=== PATIENT | female | born 1985 ===

== ENCOUNTER 2020-07-29 13:28 | Emergency (ER) | payer OTHER, SELFPAY ==
[2020-07-29 13:44] VITALS: BP 115/71; PULSE 67; RESP 16; TEMP 36.2; O2SAT 98; BMI 35.8
--- NOTE | 2020-07-29 13:54 | ED_ITS ---
HPI - URI/Sore Throat General Chief Complaint: Upper Respiratory Symptoms <Amena Boo NP - Last Filed: 07/29/20 14:24> Stated Complaint: Cough <Amena Boo NP - Last Filed: 07/29/20 14:24> Time Seen by Provider: 07/29/20 13:53 <Amena Boo NP - Last Filed: 07/29/20 14:24> Source: patient <Amena Boo NP - Last Filed: 07/29/20 14:24> Mode of arrival: ambulatory <Amena Boo NP - Last Filed: 07/29/20 14:24> Limitations: no limitations <Amena Boo NP - Last Filed: 07/29/20 14:24> History of Present Illness HPI Narrative: cough, runny nose, diarrhea x3 days. No vomiting or abdominal pain. No fevers or chills. No shortness of breath or chest pain. <Amena Boo NP - Last Filed: 07/29/20 14:24> MD elicited complaint: cough and rhinorrhea <Amena Boo NP - Last Filed: 07/29/20 14:24> Onset (ago): day(s) <Amena Boo NP - Last Filed: 07/29/20 14:24> Consistency: constant <Amena Boo NP - Last Filed: 07/29/20 14:24> Severity: mild <Amena Boo NP - Last Filed: 07/29/20 14:24> Description of mucous: clear <Amena Boo NP - Last Filed: 07/29/20 14:24> Able to tolerate fluids by mouth: Yes <RAFA Peñaloza Last Filed: 07/29/20 14:24> Exacerbating factors: nothing <Amena Boo NP - Last Filed: 07/29/20 14:24> Relieving factors: nothing <Amena Boo NP - Last Filed: 07/29/20 14:24> Associated symptoms: rhinorrhea, cough and diarrhea <Amena Boo NP - Last Filed: 07/29/20 14:24> Treatments prior to arrival: none <Amena Boo NP - Last Filed: 07/29/20 14:24> Related Data Home Medications: Previous Rx's Medication Instructions Recorded tramadol 50 mg tablet 50 mg PO DAILY PRN 30 Days #30 tab 07/26/20 <Amena Boo NP - Last Filed: 07/29/20 14:24> Allergies/Adverse Reactions: Allergies Allergy/AdvReac Type Severity Reaction Status Date / Time No Known Allergies Allergy Unverified 06/13/20 18:37 <Amena Boo NP - Last Filed: 07/29/20 14:24> Review of Systems Constitutional: Constitutional: Reports no additional constitutional complaints, Denies body ache(s), Denies chills, Denies fever(s) and Denies weakness <Amena Boo NP - Last Filed: 07/29/20 14:24> Eyes: Eyes: Reports no additional eye complaints and Denies change in vision <Amena Boo NP - Last Filed: 07/29/20 14:24> ENT: Reports system reviewed and no additional complaints, except as documented, Denies dizziness, Denies otalgia, Reports nasal discharge, Denies neck pain and Denies sore throat <Amena Boo NP - Last Filed: 07/29/20 14:24> Cardiovascular: Cardiovascular: Reports no additional cardiovascular complaints, Denies chest pain, Denies leg edema and Denies dyspnea <Amena Boo NP - Last Filed: 07/29/20 14:24> Respiratory: Respiratory: Reports no additional respiratory complaints, Reports cough and Denies dyspnea <Amena Boo NP - Last Filed: 07/29/20 14:24> Gastrointestinal: Gastrointestinal: Reports no additional gastrointestinal complaints, Denies abdominal pain, Reports diarrhea, Denies nausea and Denies vomiting <Amena Boo NP - Last Filed: 07/29/20 14:24> Genitourinary: Genitourinary: Reports no additional female genitourinary complaints, Denies urinary incontinence, Denies urinary hesitancy and Denies urinary urgency <Amena Boo NP - Last Filed: 07/29/20 14:24> Musculoskeletal: Musculoskeletal: Reports no additional musculoskeletal complaints, Denies back pain, Denies arthralgias, Denies joint swelling, Denies neck pain, Denies numbness and Denies tingling <Amena Boo NP - Last Filed: 07/29/20 14:24> Integumentary/Breasts: Skin/Breast: Reports system reviewed and no additional complaints, except as docu and Denies rash <Amena Boo NP - Last Filed: 07/29/20 14:24> Neurologic: Reports system reviewed and no additional complaints, except as documented, Denies Abnormal speech present, Denies dizziness, Denies numbness, Denies tingling and Denies weakness <Amena Boo NP - Last Filed: 07/29/20 14:24> PMFSH Past Medical History Attestation statement: The following information was validated with the patient. <Amena Boo NP - Last Filed: 07/29/20 14:24> Source: obtained from family and nursing notes reviewed <Amena Boo NP - Last Filed: 07/29/20 14:24> Surgical History: Surgical History Previous section <Amena Boo NP - Last Filed: 07/29/20 14:24> Social History Social History: Social History Advance Directives: No Advance Directives Information Provided: No <Amena Boo NP - Last Filed: 07/29/20 14:24> Physical Exam Vital Signs: Vital Signs: Vital Signs Temp Pulse Resp BP Pulse Ox 07/29/20 13:44 97.2 F 67 16 115/71 98 Body Mass Index 35.8 <Amena Boo NP - Last Filed: 07/29/20 14:24> Vital Signs: Vital Signs Temp Pulse Resp BP Pulse Ox 07/29/20 13:44 97.2 F 67 16 115/71 98 Body Mass Index 35.8 <Rainer Soto MD - Last Filed: 08/09/20 01:34> Const: General: cooperative, healthy appearing, comfortable and no acute distress <Amena Boo NP - Last Filed: 07/29/20 14:24> Orientation/consciousness: patient oriented x3 <Amena Boo NP - Last Filed: 07/29/20 14:24> Limitations: no limitations <Amena Boo NP - Last Filed: 07/29/20 14:24> HENMT: Head: Yes normal to inspection <Amena Boo NP - Last Filed: 07/29/20 14:24> Ears: hearing grossly normal bilaterally <Amena Boo NP - Last Filed: 07/29/20 14:24> General nose exam: Normal external nose present <Amena Boo NP - Last Filed: 07/29/20 14:24> Face and sinus: Yes normal facial exam <Amena Boo NP - Last Filed: 07/29/20 14:24> Mouth: Normal oral and palatal mucosa present <Amena Boo NP - Last Filed: 07/29/20 14:24> Throat: Yes posterior oropharynx normal <Amena Boo NP - Last Filed: 07/29/20 14:24> Eyes: General: appearance normal, both eyes and all related structures <Amena Boo NP - Last Filed: 07/29/20 14:24> Pupils: Equal, round and reactive pupils present <Amena Boo NP - Last Filed: 07/29/20 14:24> Neck: Neck: Yes normal visual inspection <Amena Boo NP - Last Filed: 07/29/20 14:24> Chest: Chest palpation & inspection: normal inspection of the chest <Amena Boo NP - Last Filed: 07/29/20 14:24> Resp: Effort & Inspection: normal respiratory effort <Amena Boo NP - Last Filed: 07/29/20 14:24> Auscultation: clear to auscultation bilaterally <Amena Boo NP - Last Filed: 07/29/20 14:24> Cardio: Rate: regular rate <Amena Boo NP - Last Filed: 07/29/20 14:24> Rhythm: regular rhythm <Amena Boo NP - Last Filed: 07/29/20 14:24> Peripheral pulses: Peripheral pulses 2+ throughout <Amena Boo NP - Last Filed: 07/29/20 14:24> GI: Inspection: Yes normal to inspection <Amena Boo DOCUMENTATION IMPROVEMENT SPECIALIST - Last Filed: 07/29/20 14:24> Palpation (GI): Soft to palpation and nontender <Amena Boo NP - Last Filed: 07/29/20 14:24> Auscultation: normal bowel sounds <Amena Boo NP - Last Filed: 07/29/20 14:24> Back/Spine/Pelvis: Thoracic/Lumbar Spine: thoracic and lumbar spine normal to inspection <Amena Boo NP - Last Filed: 07/29/20 14:24> Skin: General skin exam: no rashes or lesions noted <Amena Boo NP - Last Filed: 07/29/20 14:24> Neuro: General: patient oriented x3, no focal motor deficits and normal sensation to monofilament <Amena Boo NP - Last Filed: 07/29/20 14:24> Cranial nerves: Yes Equal, round and reactive pupils present <Amena Boo NP - Last Filed: 07/29/20 14:24> Cognition (Neuro): normal cognition <Amena Boo NP - Last Filed: 07/29/20 14:24> Speech: No Abnormal speech present <Amena Boo NP - Last Filed: 07/29/20 14:24> Gait exam (Neuro): Normal gait present <Amena Boo NP - Last Filed: 07/29/20 14:24> Motor exam (neuro): 5/5 motor strength present throughout <Amena Boo NP - Last Filed: 07/29/20 14:24> Extrem: General: Yes normal to inspection <Amena Boo NP - Last Filed: 07/29/20 14:24> Course Course Course Narrative: Patient here with cough and runny nose and diarrhea for the last 3 days. Well appearing. Stable vital signs. No abdominal pain on exam. COVID testing sent. Reviewed worrisome signs and symptoms of when to return to the emergency department. Comfortable with discharge home. <Amena Boo NP - Last Filed: 07/29/20 14:24> I have reviewed the chart <Rainer Soto MD - Last Filed: 08/09/20 01:34> MDM - URI/Sore Throat Lab Data Labs: Lab Results 07/29/20 Range/Units 14:07 COVID-19 PCR NOT DETECTED (NOT DETECTED) <Amena Boo NP - Last Filed: 07/29/20 14:24> Lab Results 07/29/20 Range/Units 14:07 COVID-19 PCR NOT DETECTED (NOT DETECTED) <Rainer Soto MD - Last Filed: 08/09/20 01:34> Discharge Plan Discharge Clinical Impression: Viral infection <Amena Boo NP - Last Filed: 07/29/20 14:24> Patient Disposition: Home, Self-Care <Amena Boo NP - Last Filed: 07/29/20 14:24> Instructions: Viral Syndrome (ED) <Amena Boo NP - Last Filed: 07/29/20 14:24> Additional Instructions: We have tested you today for COVID 19. Test results take 1-2 days and we will call you with the results negative or positive. Take tylenol or motrin if able as needed for pain or fever. Stay well hydrated with fluids like water, gatorade and/or powerade. Wash hands at home. If living with others try to self isolate if possible. If unable wear a mask around others in your home and wash hands frequently. If COVID test is positive you will need to self isolate for a total of 14 days from when your symptoms started. You may return to work sooner if testing is negative and all symptoms resolved >72 hours. You should return to the emergency department for severe shortness of breath, chest pain or fever which does not respond to both tylenol and motrin at home. <Amena Boo NP - Last Filed: 07/29/20 14:24> Prescriptions: No Action tramadol 50 mg tablet 50 mg PO DAILY PRN (Reason: pain) 30 Days Qty: 30 RF: 0 <Amena Boo NP - Last Filed: 07/29/20 14:24> Referrals: Po,Tom Plasencia MD [Primary Care Provider] - 2 days <Amena Boo NP - Last Filed: 07/29/20 14:24> Stand Alone Forms: Work/School Release <Amena Boo NP - Last Filed: 07/29/20 14:24> Interventions: ED Discharge Assessment Last Done: 07/29/20 14:21 <Amena Boo NP - Last Filed: 07/29/20 14:24> Discharge Date/Time: 07/29/20 14:15 <Amena Boo NP - Last Filed: 07/29/20 14:24>
== END 2020-07-29 14:15 | disposition home or self-care (01) ==
LOC: HO.ED 14:08
PROVIDERS: Nurse Practitioner Family; Emergency Provider Emergency Medicine; PCP Internal Medicine
DX: B34.9 Viral infection, unspecified (principal); R05 Cough; J34.89 Other specified disorders of nose and nasal sinuses; Z79.899 Other long term (current) drug therapy
CPT/HCPCS: 99283; U0003

== ENCOUNTER 2020-08-27 08:57 | Outpatient (REF) | payer OTHER, SELFPAY ==
[2020-08-27 10:29] LABS: Baso%MD 0.5 %; Eos%MD 3.3 %; Hematocrit 42.9 % (37-47); Hemoglobin 13.5 g/dl (12.0-16.0); IG%MD 0.5 %; Lymph%MD 37.7 %; Mean Corpuscular HGB Conc 31.5 g/dl (31.0-35.0); Mean Corpuscular Hemoglobin 29.3 pg (27.0-33.0); Mean Corpuscular Volume 93.3 fL (80-98); Mean Platelet Volume 10.1 fL (9.4-12.3); Mono%MD 10.2 %; Neut%MD 47.8 %; Platelet Count 301 X10*3/uL (160-400); Red Cell Distribution Width 13.6 % (11.0-16.0); White Blood Count 6.1 X10*3/uL (4.8-10.8)
[2020-08-27 12:57] LABS: Band Neutrophils Percent 0 % (3-5); Eosinophils Absolute Manual 0.2 X10*3/UL (0.0-0.8); Eosinophils Percent Manual 4 % (0-4); Lymphocytes Absolute Manual 2.2 X10*3/uL (0.6-4.8); Lymphocytes Percent Manual 36 % (20-40); Monocytes Absolute Manual 0.7 X10*3/uL (0.0-1.2); Monocytes Percent Manual 12 % (2-11); Neutrophils Absolute Manual 2.9 X10*3/uL (2.2-7.9); Neutrophils Percent Manual 48 % (45-73); Platelet Estimate NORMAL (NORMAL); Platelet Morphology Comment NORMAL; RBC Morphology NORMAL
== END 2020-08-27 08:58 | disposition home or self-care (01) ==
LOC: HO.LAB 08:57
PROVIDERS: PCP Internal Medicine; Visit Provider Internal Medicine
DX: J45.909 Unspecified asthma, uncomplicated (principal)
CPT/HCPCS: 36415; 85007; 85027

== ENCOUNTER 2020-10-01 17:19 | Outpatient (REF) | payer OTHER, SELFPAY | END 2020-10-01 17:20 | disposition home or self-care (01) | LOC: HO.LNP 17:19 | PROVIDERS: Visit Provider Physician Assistant | DX: T81.30XA Disruption of wound, unspecified, initial encounter (principal) | CPT/HCPCS: 87071; 87147; 87205 ==

== ENCOUNTER 2020-10-10 08:04 | Outpatient (RCR) | payer OTHER, SELFPAY | END 2021-01-30 11:33 | disposition home or self-care (01) | LOC: HO.WCC 08:04 | PROVIDERS: Visit Provider Surgery | DX: T81.31XA Disruption of external operation (surgical) wound, not elsewhere classified, initial encounter (principal) | CPT/HCPCS: 11042; 99203; 99212 ==

== ENCOUNTER 2021-03-10 12:48 | Outpatient (REF) | payer OTHER, SELFPAY ==
[2021-03-10 13:51] LABS: MANUAL DIFF FLAG NO
[2021-03-10 14:05] LABS: Basophils Percent Auto 0.3 % (0-2); Eosinophils Absolute Auto 0.2 X10*3/uL (0.0-0.4); Eosinophils Percent Auto 3.7 % (0-4); Hematocrit 39.3 % (37-47); Imm Gran Abs Auto 0.02 X10*3/uL (0.00-0.03); Imm Gran Pct Auto 0.3 % (0.0-0.4); Lymphocytes Absolute Auto 2.3 X10*3/uL (1.2-4.9); Lymphocytes Percent Auto 36.2 % (20-40); Mean Corpuscular HGB Conc 33.1 g/dl (31.0-35.0); Mean Corpuscular Hemoglobin 29.8 pg (27.0-33.0); Mean Corpuscular Volume 90.1 fL (80-98); Mean Platelet Volume 9.9 fL (9.4-12.3); Monocytes Absolute Auto 0.5 X10*3/uL (0.1-1.2); Monocytes Percent Auto 7.5 % (2-11); Neutrophils Absolute Auto 3.4 X10*3/uL (2.0-8.3); Platelet Count 285 X10*3/uL (160-400); Red Blood Count 4.36 X10*6/uL (4.20-5.50); Red Cell Distribution Width 13.2 % (11.0-16.0); White Blood Count 6.4 X10*3/uL (4.8-10.8)
[2021-03-10 14:20] LABS: Glucose Urine UA NEG (NEG); Leukocyte Esterase Urine NEG (NEG); Nitrite Urine NEG (NEG); Specific Gravity - Urine 1.025 (1.005-1.025); Urine Blood NEG (NEG); Urine Ketones NEG (NEG); Urine Protein NEG (NEG-TRACE)
[2021-03-10 14:23] LABS: Alanine Aminotransferase 19 U/L (0-31); Albumin Level 4.2 g/dL (3.5-5.0); Alkaline Phosphatase 67 U/L (39-117); Anion Gap 11 (12-20); Aspartate Amino Transferase 17 U/L (5-31); Bilirubin Total 0.6 mg/dL (0.0-1.0); Blood Urea Nitrogen 12 mg/dL (9-16); Calcium 9.1 mg/dL (8.4-10.2); Carbon Dioxide 25 mmol/L (22-29); Chloride 108 mmol/L (96-108); Cholesterol 174 mg/dL; Estimated Glomerular Filt Rate > 60; Glucose Fasting 90 mg/dL (60-99); HDL Cholesterol 37 mg/dL; LDL Cholesterol Calculated 121 mg/dl; Potassium 4.6 mmol/L (3.3-5.1); Sodium 139 mmol/L (135-145); Total Protein 6.7 g/dL (6.5-8.0); Triglycerides 83 mg/dL
[2021-03-10 14:32] LABS: Appearance Urine CLEAR; Color Urine YELLOW
== END 2021-03-10 12:49 | disposition home or self-care (01) ==
LOC: HO.LAB 12:48
PROVIDERS: Nurse Practitioner Family; PCP Physician Assistant; Visit Provider Physician Assistant
DX: R35.0 Frequency of micturition (principal); J40 Bronchitis, not specified as acute or chronic
CPT/HCPCS: 36415; 80053; 80061; 81003; 85025

== ENCOUNTER 2021-03-13 08:22 | Outpatient (REF) | payer OTHER, SELFPAY ==
[2021-03-13 09:54] LABS: Leukocytes Stool Qualitative NEGATIVE (NEGATIVE)
== END 2021-03-13 08:23 | disposition home or self-care (01) ==
LOC: HO.LNP 08:22
PROVIDERS: Visit Provider Internal Medicine
DX: R19.7 Diarrhea, unspecified (principal)
CPT/HCPCS: 87045; 87046; 89055

== ENCOUNTER → 2021-09-04 09:18 | Outpatient (BNVA) | payer OTHER, SELFPAY | PROVIDERS: PCP Internal Medicine; Visit Provider Surgery Vascular Surgery | DX: I83.12 Varicose veins of left lower extremity with inflammation (principal) | CPT/HCPCS: 99202 ==

== ENCOUNTER 2021-09-24 12:46 | Outpatient (REF) | payer OTHER, SELFPAY ==
--- NOTE | ~2021-09-24 | US_ITS ---
EXAMINATION: BILATERAL LOWER EXTREMITY VENOUS ULTRASOUND (REFLUX EXAM) CLINICAL INDICATION: Bilateral lower extremity varicose veins. COMPARISON: None. TECHNIQUE: Color flow triplex imaging and compression Doppler was performed to evaluate both the deep and the superficial systems bilaterally. To evaluate the superficial system, the examination was performed in the upright position. Color-flow Doppler ultrasound and compression ultrasound were utilized. In addition, maneuvers were utilized to demonstrate reflux. FINDINGS: SUPERFICIAL ULTRASOUND WITH DOPPLER OF RIGHT LOWER EXTREMITY GREAT SAPHENOUS VEIN: Saphenofemoral junction: 0.9 cm Max diameter: 0.9 cm Min diameter: 0.2 cm Reflux: There is greater than 3.3 seconds of reflux at the mid thigh. DUPLICATED MEDIAL GREAT SAPHENOUS VEIN: Max Diameter: None Imaged. Reflux: NA DUPLICATED LATERAL GREAT SAPHENOUS VEIN: Diameter: None Imaged. Reflux: NA SMALL SAPHENOUS VEIN: Proximal Calf: 0.2 cm Distal Calf: 0.1 cm Reflux: No evidence of reflux. VEIN OF GIACOMINI: None Imaged. PERFORATORS: Location: Proximal calf, 1 mm. Reflux: None VARICOSITIES: Location: None Imaged. Reflux: NA DEEP VENOUS ULTRASOUND OF THE RIGHT LOWER EXTREMITY: Common Femoral Vein: Compressible, normal respiratory variation and augmented flow. Femoral vein: Compressible, normal color flow and augmentation. Popliteal Vein: Compressible, normal augmentation. Deep Reflux: There is greater than 1.3 seconds of reflux within the right femoral vein. Lopez's Cyst: There is no evidence of a Lopez's cyst. SUPERFICIAL ULTRASOUND WITH DOPPLER OF LEFT LOWER EXTREMITY GREAT SAPHENOUS VEIN: Saphenofemoral junction: 0.9 cm Max diameter: 0.9 cm Min diameter: 0.3 cm Reflux: There is reflux from the mid thigh to the ankle measuring up to 3.2 seconds. DUPLICATED MEDIAL GREAT SAPHENOUS VEIN: Max Diameter: None Imaged. Reflux: NA DUPLICATED LATERAL GREAT SAPHENOUS VEIN: Diameter: None Imaged. Reflux: NA SMALL SAPHENOUS VEIN: Proximal Calf: 0.2 cm Distal Calf: 0.3 cm Reflux: No evidence of reflux. VEIN OF GIACOMINI: None Imaged. PERFORATORS: Location: Mid thigh, 0.2 cm. Reflux: No reflux. VARICOSITIES: Location: At knee measuring 2 and 3 mm. Reflux: Both imaged varicosities have greater than 1.9 seconds of reflux. DEEP VENOUS ULTRASOUND OF THE LEFT LOWER EXTREMITY: Common Femoral Vein: Compressible, normal respiratory variation and augmented flow. Femoral vein: Compressible, normal color flow and augmentation. Popliteal Vein: Compressible, normal augmentation. Deep Reflux: There is no evidence of reflux in the deep system in either the common femoral vein or the popliteal vein. Lopez's Cyst: There is no evidence of a Lopez's cyst. US/US venous duplex LE BI IMPRESSION: 1. Bilateral great saphenous venous insufficiency. 2. Left lower extremity refluxing varicosities. 3. Deep venous insufficiency involving the right mid femoral vein. 4. No evidence of DVT.
== END 2021-09-24 12:47 | disposition home or self-care (01) ==
LOC: HO.US 12:46
PROVIDERS: PCP Internal Medicine; Visit Provider Surgery Vascular Surgery
DX: I83.12 Varicose veins of left lower extremity with inflammation (principal)
CPT/HCPCS: 93970

== ENCOUNTER → 2021-10-02 11:07 | Outpatient (BNVA) | payer OTHER, SELFPAY | PROVIDERS: PCP Internal Medicine; Visit Provider Surgery Vascular Surgery | DX: I83.12 Varicose veins of left lower extremity with inflammation (principal) | CPT/HCPCS: 99212 ==

== ENCOUNTER 2021-12-09 14:23 | Outpatient (REF) | payer OTHER, SELFPAY ==
--- NOTE | ~2021-12-09 | MM_ITS ---
EXAMINATION: MM DIAGNOSTIC DIGITAL BREAST TOMOSYNTHESIS, BILATERAL US DIAGNOSTIC ULTRASOUND BREAST, BILATERAL CLINICAL INFORMATION: 36-year-old with bilateral medial breast pain for approximately 4 months. Significant intentional weight loss, bariatrics. No prior breast imaging. Family history breast cancer, maternal aunt. The lifetime risk of breast cancer based on the Tyrer-Cuzick Model is 13%. COMPARISON: None (current study represents initial baseline exam). TECHNIQUE: Digital breast tomosynthesis is performed in both the craniocaudal and mediolateral oblique views along with computer-aided detection (CAD). Synthesized 2D images are generated from the tomosynthesis. Additional rolled CC x2 views of the right breast are obtained. Ultrasound of each breast is performed using grayscale imaging and color Doppler without and with harmonics. Left breast is imaged 6:00 through 12:00 position and right breast is imaged 12:00 through 5:00 position. FINDINGS: There are scattered areas of fibroglandular density (ACR BI-RADS breast composition Category b). Breast tissue composition borders on heterogeneously dense in the anterior breasts. There is no mass or architectural abnormality or abnormal calcifications. Asymmetric density central inner right breast mid depth on CC view resolves on the additional rolled CC projections. The axilla and skin contours are unremarkable. Ultrasound of each breast demonstrates no cystic or solid mass, architectural abnormality or focal duct ectasia. There is no skin thickening or edema tracking in soft tissue planes. No focal hyperemia. Results are discussed with the patient at time of visit, using an biblical languages professor. MM/MM tomosynthesis diagnostic BI IMPRESSION: No mammographic evidence of malignancy or inflammatory changes. Unremarkable bilateral breast ultrasound. ASSESSMENT: BI-RADS 1: Negative RECOMMENDATION: 1. Patient's bilateral breast symptoms should be managed based on the clinical impression. 2. Otherwise, routine annual screening mammography, beginning age 40, or earlier as clinical risk factors warrant. This patient's information was entered into a reminder system with a target due date for their next mammogram.
== END 2021-12-09 14:24 | disposition home or self-care (01) ==
LOC: HO.MAMMO 14:23
PROVIDERS: Visit Provider Nurse Practitioner Family
DX: N63.14 Unspecified lump in the right breast, lower inner quadrant (principal); N63.25 Unspecified lump in the left breast, overlapping quadrants
CPT/HCPCS: 76641; 76642; 77062; 77066

== ENCOUNTER 2021-12-17 09:41 | Outpatient (REF) | payer OTHER, SELFPAY ==
[2021-12-17 10:06] LABS: Hematocrit 42.3 % (37.0-47.0); Hemoglobin 13.7 g/dl (12.0-16.0); Mean Corpuscular HGB Conc 32.4 g/dl (31.0-35.0); Mean Corpuscular Hemoglobin 29.8 pg (27.0-33.0); Mean Corpuscular Volume 92.2 fL (80.0-98.0); Mean Platelet Volume 9.7 fL (9.4-12.3); Platelet Count 313 X10*3/uL (160-400); Red Blood Count 4.59 X10*6/uL (4.20-5.50); Red Cell Distribution Width 12.4 % (11.0-16.0); White Blood Count 8.2 X10*3/uL (4.8-10.8)
[2021-12-17 10:47] LABS: Alanine Aminotransferase 16 U/L (0-31); Albumin Level 4.4 g/dL (3.5-5.0); Alkaline Phosphatase 66 U/L (39-117); Anion Gap 13 (12-20); Aspartate Amino Transferase 15 U/L (5-31); Bilirubin Total 0.7 mg/dL (0.0-1.0); Blood Urea Nitrogen 14 mg/dL (9-16); Calcium 9.6 mg/dL (8.4-10.2); Carbon Dioxide 23 mmol/L (22-29); Chloride 105 mmol/L (96-108); Cholesterol 210 mg/dL; Estimated Glomerular Filt Rate > 60; Glucose Fasting 98 mg/dL (60-99); HDL Cholesterol 34 mg/dL; LDL Cholesterol Calculated 155 mg/dl; Potassium 4.5 mmol/L (3.3-5.1); Sodium 136 mmol/L (135-145); Total Protein 7.2 g/dL (6.5-8.0); Triglycerides 109 mg/dL
[2021-12-17 10:53] LABS: TSH reflex Free T4 1.49 uIU/mL (0.32-4.0)
[2021-12-19 12:55] LABS: TS Negative Control Passed; TS Panel A 0; TS Panel B 0; TS Positive Control Passed; TSpotTB Negative (Negative)
== END 2021-12-17 09:42 | disposition home or self-care (01) ==
LOC: HO.LAB 09:41
PROVIDERS: PCP Physician Assistant; Visit Provider Physician Assistant
DX: Z11.1 Encounter for screening for respiratory tuberculosis (principal); E78.00 Pure hypercholesterolemia, unspecified
CPT/HCPCS: 36415; 80053; 80061; 84443; 85027; 86481

== ENCOUNTER 2022-05-26 14:33 | Outpatient (REF) | payer OTHER, SELFPAY ==
--- NOTE | ~2022-05-26 | XR_ITS ---
EXAMINATION: XR HAND, RIGHT CLINICAL INFORMATION: Pain in right hand COMPARISON: None TECHNIQUE: PA, lateral, and oblique views of the right hand. FINDINGS: No fracture or dislocation. Normal alignment. No soft tissue swelling or radiopaque foreign body. XR/XR hand RT 2V IMPRESSION: No acute osseous abnormality of the right hand.
--- NOTE | ~2022-05-26 | XR_ITS ---
EXAMINATION: XR HAND, LEFT CLINICAL INFORMATION: Pain in right hand (sic) COMPARISON: None TECHNIQUE: PA, lateral, and oblique views of the left hand. FINDINGS: No fracture or dislocation. Normal alignment. No soft tissue swelling or radiopaque foreign body. XR/XR hand LT 2V IMPRESSION: No acute osseous abnormality of the left hand.
== END 2022-05-26 14:34 | disposition home or self-care (01) ==
LOC: HO.XRAY 14:33
PROVIDERS: PCP Physician Assistant; Visit Provider Physician Assistant
DX: M79.642 Pain in left hand (principal); M79.641 Pain in right hand
CPT/HCPCS: 73120

== ENCOUNTER 2024-04-16 18:25 | Emergency (ER) | payer OTHER, SELFPAY ==
[2024-04-16 18:30] VITALS: BP 111/71; PULSE 75; RESP 18; TEMP 36.6; O2SAT 99; BMI 31.9
--- OUTSIDE RECORDS SUMMARY | 2024-04-16 19:05 | XMS_ITS | Continuity of Care Document ---
Author Organization [facility] Address [address] [place] [id number]- Care Team Providers Care Operating Manager Name Role Phone Tom Vaca MD Primary Care Physician Encounter [facility] [place] ACCT R [id number] Date(s): 07/13/22 - 09/23/22 [facility] [address] [place] [phone]- Referring Physician: Tom Vaca MD Allergies, Adverse Reactions, Alerts No Known Medication Allergies Patient Care team information Care Team Personnel Name: Tom Vaca MD Position: Reference Physician Member Role: PCP Address: Address: [address] [place] [id number]- Care Team Related Persons Name: RYANSONALI Address: [place] [address]
--- OUTSIDE RECORDS SUMMARY | 2024-04-16 19:05 | XMS_ITS | Continuity of Care Document ---
Author Organization [facility] Address [address] [place] [id number]- Care Team Providers Care Drum Maker Name Role Phone Tom Vaca MD Primary Care Physician [phone] Encounter [facility] [place] Date(s): 05/13/22 - 08/09/22 [facility] [address] [place] [phone]- Attending Physician: Junior Egan MD Admitting Physician: Junior Egan MD Referring Physician: Tom Vaca MD Allergies, Adverse Reactions, Alerts No Known Medication Allergies Patient Care team information Care Team Personnel Name: Tom Vaca MD Position: Reference Physician Member Role: PCP Address: Address: [address] [place] [id number] Care Team Related Persons Name: SONALI DAVIS Address: [place] [address]
--- OUTSIDE RECORDS SUMMARY | 2024-04-16 19:05 | XMS_ITS | Continuity of Care Document ---
Author Organization [facility] Address [address] [place] [phone]- Care Team Providers Care Courtroom Deputy Name Role Phone Tom Vaca MD Primary Care Physician Encounter [facility] [place] Date(s): 08/24/22 - 09/23/22 [facility] [address] [place] [address]- Attending Physician: Admtr, Ar8 Admitting Physician: Admtr, Ar8 Referring Physician: Admtr, Ar8 Allergies, Adverse Reactions, Alerts No Known Medication Allergies Patient Care team information Care Team Personnel Name: Tom Vaca MD Position: Reference Physician Member Role: PCP Address: Address: [address] [place] [id number]- Care Team Related Persons Name: SONALI DAVIS Address: [place] [address]
--- NOTE | 2024-04-16 19:07 | ED_ITS ---
HPI - General Adult General Chief complaint: General Medical Stated complaint: belly pain Time Seen by Provider: 04/16/24 19:07 History of Present Illness ED Provider: Gregory CANO narrative: The patient is a 38-year-old female who says that over the last 3 months she has noticed intermittent episodes of bulging in her abdomen. This is just to the left of the midline and slightly above the umbilicus. This can happen when she coughs or tries to have a bowel movement or strains in other ways. She says that the protrusion of the bulge is brief but unpleasant. The patient says that she has had a ?tummy tuck surgery but no other abdominal surgeries. She is on no anticoagulant medication. Related Data Home Medications ?Medication ?Instructions ?Recorded ?Confirmed buspirone 5 mg tablet 5 mg PO TID anxiety 05/04/22 05/04/22 fluoxetine 10 mg capsule 10 mg PO DAILY 05/04/22 05/04/22 lorazepam 0.5 mg tablet 0.5 mg PO BID PRN anxiety attack 05/04/22 05/04/22 quetiapine 50 mg tablet 50 - 100 mg PO BEDTIME 05/04/22 05/04/22 Previous Rx's ?Medication ?Instructions ?Recorded dextromethorphan-guaifenesin 30 1 tab PO Q12H PRN cough 10 days 12/04/20 mg-600 mg tablet extended #20 tabs [id number] hr (Mucinex DM) hydroxyzine HCl 10 mg tablet 10 mg PO BID 15 days #30 tabs 10/20/21 mupirocin 2 % topical ointment 1 appl topical BID 15 days #22 11/28/21 grams lidocaine HCl 2 % mucosal solution 10 ml mucous membrane BID PRN 05/04/22 (Lidocaine Viscous) mouth pain 10 days #100 mL prednisone 10 mg tablet 20 mg (2 x 10 mg) PO DAILY 4 days 05/07/22 #8 tabs quetiapine 100 mg tablet (Seroquel) 100 mg PO BEDTIME 30 days #30 tabs 08/04/22 tramadol 50 mg tablet 50 mg PO DAILY pain 7 days #7 tabs 08/04/22 naproxen 500 mg tablet 500 mg PO BID PRN pain 10 days #20 02/11/23 tabs albuterol sulfate 90 mcg/actuation 2 puff inhalation Q6H PRN 02/16/24 aerosol inhaler bronchospasm 30 days #6.7 grams Allergies Allergy/AdvReac Type Severity Reaction Status Date / Time No Known Allergies Allergy Verified 04/16/24 18:37 [facility] Past Medical History Medical History Anxiety and depression Asthma Bronchitis 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 Father No problems noted. Social History Social History Housing: Apartment Alcohol intake: current Alcohol intake frequency: holidays/special occasions only Patient Tobacco Use Status: Current everyday Tobacco user Tobacco use type: Cigarette Cigarettes Per Day: 10 e-Cigarette/Vaping Use: Never Used Second Hand Smoke Exposure: Yes Advance Directives: No Advance Directives Information Provided: No Do you have a plan to hurt others: No Plan Current occupational status: employed Cognitive needs: No Hearing needs: No Vision needs: Yes (Glasses) Physical Exam ED Vital Signs: Vital Signs - 24 hr 04/16/24 18:30 Temperature 98 F Pulse Rate 75 Respiratory Rate 18 Blood Pressure 111/71 Pulse Oximetry 99 Oxygen Delivery Method Room Air BMI result Body Mass Index 31.9 Const Other: The patient is awake, alert, pleasant, cooperative. She does not appear in any distress. HENMT Other: The face is symmetrical. Mucous membranes moist. Eyes Other: Pupils are round equal, conjunctivae clear Resp Effort & Inspection: normal respiratory effort Auscultation: clear to auscultation bilaterally Cardio Rate: regular rate Rhythm: regular rhythm Heart sounds: S1 normal heart sound present and S2 normal heart sound present GI Other: The abdomen was soft and nontender. There may be a defect in the abdominal wall to the left of the midline a few cm above the umbilicus. There is no herniated material at the moment. Skin Other: Skin is dry and unremarkable Neuro Other: The patient is awake, alert, pleasant, cooperative. Cranial nerves are grossly intact. She moves her extremities normally and seems grossly neurologically intact. Extrem Other: No peripheral edema Medical Decision Making Medical Decision Making MDM Narrative: The patient is a 38-year-old woman who presents for evaluation of symptoms that have been building over the last 3 months. She reports episodes of a bulge in her left abdomen. This occurs when she is straining or coughing. She describes what sounds like an abdominal wall hernia. She has no history of abdominal surgery aside from a tummy tuck surgery. No intra-abdominal surgeries I believe. Clinically the patient is not exhibiting a hernia at the moment and her abdomen is soft and nontender. I may be appreciating an area of weakness in the abdominal wall to the left of the midline above the umbilicus. I explained to the patient I suspect that she probably has an abdominal wall hernia which is currently not causing any symptoms. She will be referred to General surgery. She will be advised against straining and lifting. She was given a work note for no heavy lifting at work. Discharge Plan Discharge Clinical Impression: Abdominal wall hernia Patient Disposition: Home, Self-Care Instructions: Ventral Hernia (ED) Additional Instructions: I believe that you are likely having a weakness in the abdominal wall. I believe that you likely have a hernia and that when you strain either by coughing or lifting or other forms of straining the hernia pops out. Fortunately the hernia reduces itself. I think he should be seen by a general surgeon. You have been given the contact information for Dr. York. Please call his office tomorrow to set up a prompt follow up appointment. In the meantime please avoid as much as you can activities that provoke the hernia. Avoid straining and heavy lifting. Return to the emergency room if significantly worse. Prescriptions: No Action hydroxyzine HCl 10 mg tablet 10 mg PO BID 15 Days Qty: 30 1RF prednisone 10 mg tablet 20 mg PO DAILY 4 Days Qty: 8 0RF tramadol 50 mg tablet 50 mg PO DAILY 7 Days Qty: 7 0RF quetiapine [Seroquel] 100 mg tablet 100 mg PO BEDTIME 30 Days Qty: 30 6RF naproxen 500 mg tablet 500 mg PO BID PRN (Reason: pain) 10 Days Qty: 20 0RF albuterol sulfate 90 mcg/actuation HFA aerosol inhaler 2 puff inhalation Q6H PRN (Reason: bronchospasm) 30 Days Qty: 6.7 3RF Mucinex DM 30-600 mg tablet extended release 12 hr 1 tab PO Q12H PRN (Reason: cough) 10 Days Qty: 20 0RF fluoxetine 10 mg capsule 10 mg PO DAILY lorazepam 0.5 mg tablet 0.5 mg PO BID PRN (Reason: anxiety attack) quetiapine 50 mg tablet 50 - 100 mg PO BEDTIME buspirone 5 mg tablet 5 mg PO TID lidocaine HCl [Lidocaine Viscous] 2 % solution 10 ml mucous membrane BID PRN (Reason: mouth pain) 10 Days Qty: 100 0RF mupirocin 2 % ointment 1 appl topical BID 15 Days Qty: 22 0RF Referrals: Kadeem York MD [Physician] - (Apparent abdominal wall hernia) Stand Alone Forms: Work/School Release Print Language: Icelandic
[2024-04-16 19:54] VITALS: BP 111/71; PULSE 75; RESP 18; TEMP 36.6; O2SAT 99
== END 2024-04-16 19:55 | disposition home or self-care (01) ==
PROVIDERS: Emergency Provider Emergency Medicine; PCP Physician Assistant
DX: K43.9 Ventral hernia without obstruction or gangrene (principal); Z79.899 Other long term (current) drug therapy
CPT/HCPCS: 99282; 99283

== ENCOUNTER 2024-04-26 07:59 | Outpatient (AMB) | payer OTHER, SELFPAY ==
--- NOTE | 2024-04-26 08:04 | MHC.PC.OV ---
Vital Signs 04/26/24 08:05 Height 5 ft 7 in Weight 204 lb BMI 31.9 BP 110/76 Blood Pressure Location Lt brachial Position Sitting Intake Visit Reasons: hands and feet hurting Table Tender Sludge Required: Yes Table Tender Sludge Language: Uzbek Accompanied by: Self / Same As Patient Allergies No Known Allergies Allergy (Verified 04/26/24 08:06) Tobacco use date assessed: 04/26/24 Dental Screening Dental Screen Date: 04/26/24 Did you have a dental visit in the last 12 months?: Yes Did you have a dental problem in the last 6 months where you did not have access to dental care?: No Was dental information given to patient?: Patient has dentist HPI hands and feet hurting HPI Details Patient is a 30-year-old female here today for problem visit. I have not seen this patient for over 2 years. She has a past medical history significant for anxiety, obesity, hyperlipidemia and asthma. Today has multiple complaints as below. She reports she is having some blurred vision and would like to see an eye doctor for a in depth eye exam. Patient recently seen at the [facility] for an abnormality in her abdomen. Did not appear to be a hernia though will be following up with a general surgeon. Of note has had tummy tuck surgery in the past. She does report having some right upper quadrant abdominal pain as well. She complains today bilateral hand and feet pain. She did have hand x-rays in 2021 which did not show any arthritis or soft tissue abnormalities. She reports having some weakness in her hands in the often have spasms and get stuck She also admits to having some bright red blood per rectum when using defecating. 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 Father No problems noted. Social History Housing: Apartment Alcohol intake: current Alcohol intake frequency: holidays/special occasions only Patient Tobacco Use Status: Current everyday Tobacco user Tobacco use type: Cigarette Cigarettes Per Day: 10 e-Cigarette/Vaping Use: Never Used Second Hand Smoke Exposure: Yes service: No Current occupational status: employed Current occupational exposures/hazards: No Cognitive needs: No Hearing needs: No Vision needs: Yes (Glasses) Questionnaire PHQ-9 Over the last 2 weeks, how often have you been bothered by any of the following problems? 1. Little interest or pleasure in doing things: nearly every day 2. Feeling down, depressed, or hopeless: more than half the days 3. Trouble falling or staying asleep, or sleeping too much: nearly every day 4. Feeling tired or having little energy: nearly every day 5. Poor appetite or overeating: not at all 6. Feeling bad about yourself - or that you are a failure or have let yourself or your family down: not at all 7. Trouble concentrating on things, such as reading the newspaper or watching television: several days 8. Moving or speaking so slowly that other people could have noticed. Or the opposite - being so fidgety or restless that you have been moving around a lot more than usual: several days 9. Thoughts that you would be better off or of hurting yourself in some way: not at all Total score: 13 Depression Screening Interpretation: Positive Depression Screening Follow-up: Existing condition and Declines treatment Depression Screening Done: Yes 33656 - PHQ-9 Billing: Yes Source: Developed by Drs. Sai Person, Alyssa Fan, Seng Blanchard and colleagues, with an educational herman from [employer]. Thrive Questionnaire Date Thrive assessed: 04/26/24 I am a: Patient What is your living situation today?: I have a steady place to live Within the past 12 months, did the food you bought not last and you didn't have the money to get more?: Never true Within the past 12 months, did you worry whether your food would run out before you got money to buy more?: Never true Do you have trouble paying for medicines?: No Do you have trouble getting transportation to medical appointments?: No Do you have trouble paying your heating and electricity bill?: No Do you have trouble taking care of your child, family member or friend?: No Do you have trouble with day-to-day activities such as bathing, preparing meals, shopping, managing finances, etc.?: No Are you currently unemployed and looking for a job?: No Are you interested in more education?: No Please select the resources that you would like help with: None Currently or been in a relationship where the following occur: No concerns reported THRIVE Score: 0 AUDIT C Alcohol Use Questionnaire (AUDIT-C) 1. How often do you have a drink containing alcohol?: Monthly or less 2. How many drinks containing alcohol do you have on a typical day when you are drinking?: 1 or 2 3. How often do you have six or more drinks on one occasion?: Never Total Score: 1 SELINA-7 AMB Questionnaire SELINA-7 Date SELINA - 7 assessed: 04/26/24 Feeling nervous, anxious, or on edge: 2 = More than half the days Not being able to stop or control worryin = Several days Worrying too much about different things: 3 = Nearly every day Trouble relaxin = More than half the days Being so restless that it is hard to sit still: 1 = Several days Becoming easily annoyed or irritable: 1 = Several days Feeling afraid as if something awful might happen: 3 = Nearly every day Total SELINA-7 score (0-4 normal; 5-9 mild; 10-14 moderate; 15-21 severe): 13 Source: Developed by Drs. Sai Person, Alyssa Fan, Seng Blanchard and colleagues, with an educational herman from [employer]. SELINA-7 Assessment Billing SELINA-7 Assessment Tool: SELINA-7 Assessment 36329 Review of Systems Const Denies headache(s) Eyes Denies loss of vision ENT Denies vertigo, Denies dizziness, Denies headache(s) and Denies sore throat Card Denies chest pain, Denies leg edema and Denies lightheadedness Resp Denies cough, Denies hemoptysis and Denies wheezing GI Denies abdominal pain, Denies melena, Denies constipation, Denies diarrhea and Denies vomiting Denies urinary frequency, Denies dysuria and Denies urinary urgency Musc Denies arthralgias, Denies joint swelling, Denies numbness and Denies tingling Neuro Denies Abnormal speech present, Denies behavioral changes, Denies vertigo, Denies dizziness, Denies headache(s), Denies loss of vision, Denies memory loss, Denies numbness and Denies tingling Psych Denies anxiety, Denies behavioral changes, Denies depression, Denies memory loss and Denies panic attacks Edward/Lymph Denies easy bleeding and Denies easy bruising Aller/Immun Denies wheezing Physical exam (Primary Care) Vital Signs: Last Vital Signs BP 110/76 04/26/24 08:05 BMI result Body Mass Index 31.9 Tobacco/Smoking Status: Tobacco use Status Tobacco use date assessed 04/26/24 04/26/24 08:11 Patient Tobacco Use Status Current everyday Tobacco 04/26/24 08:11 Tobacco use type Cigarette 04/26/24 08:11 e-Cigarette/Vaping Use Never Used 04/26/24 08:11 PHQ-9: PHQ-9 Score PHQ-9: Total score 13 04/26/24 09:01 Depression Screening Interpretation: Positive Depression Screening Follow-up: Existing condition and Declines treatment Thrive Assessment: Date of Thrive Assessment Date Thrive assessed 04/26/24 04/26/24 08:11 Currently or been in a relationship where the following occur: No concerns reported Const General: healthy appearing, no acute distress, alert and awake Nutritional Appearance: well nourished Orientation/consciousness: oriented to person, oriented to place and oriented to time HENMT Ears: TM's normal bilaterally General nose exam: Normal nasal mucous membranes and turbinates present Eyes Conjunctivae: conjunctivae normal Sclerae: sclerae normal Pupils: Equal, round and reactive pupils present Neck Neck: Yes no lymphadenopathy and Yes no JVD Thyroid: Thyroid normal Carotids: no bruits Resp Effort & Inspection: normal respiratory effort and not tachypneic Auscultation: no crackles, no rales, no rhonchi and no wheezes Cardio Rate: regular rate Rhythm: regular rhythm Heart sounds: no murmurs and normal S1 and S2 GI Palpation (GI): Soft to palpation, nontender, no hepatomegaly and no splenomegaly Auscultation: normal bowel sounds Skin General skin exam: no rashes or lesions noted and dry skin Neuro General: oriented to person, oriented to place and oriented to time Cranial nerves: Yes Equal, round and reactive pupils present Speech: No Abnormal speech present Gait exam (Neuro): Normal gait present Motor exam (neuro): no tremor noted Extrem Right upper extremity: full ROM Left upper extremity: full ROM Right lower extremity: full ROM; no edema Left lower extremity: full ROM; no edema Psych Mental Status: mental status grossly normal Speech and movement: Normal speech and movement present Affect: normal affect Attitude: cooperative Thought process: Normal thought process present Assessment and Plan Assessment & Plan (1) Bilateral hand numbness: Code(s): R20.0 - Anesthesia of skin Plan: Patient reports bilateral hand pain, numbness and spasms. She will likely benefit from occupational therapy. Will send for EMG testing to evaluate for a carpal tunnel syndrome bilaterally. (2) Screening for diabetes mellitus (DM): Code(s): Z13.1 - Encounter for screening for diabetes mellitus (3) Bright red blood per rectum: Code(s): K62.5 - Hemorrhage of anus and rectum Plan: Reports having bright red blood per rectum when she defecates over last few weeks. Will supply patient with stool softener. Advised on conservative treatment for hemorrhoids such as Sitz baths, increasing fiber and fluids in her diet. (4) Right upper quadrant abdominal pain: Code(s): R10.11 - Right upper quadrant pain Plan: She reports having right upper quadrant abdominal pain thus will send for abdominal ultrasound evaluate for any gallstones. (5) Blurred vision, bilateral: Code(s): H53.8 - Other visual disturbances Plan: Reports having blurred vision. She would like to see an eye doctor for a eye exam. Orders: Orders Comprehensive [facility]. Panel Fast Today Z13.1 - Encounter for screening for diabetes mellitus Complete Blood Count no Diff Today Z13.1 - Encounter for screening for diabetes mellitus US abdomen complete Today R10.11 - Right upper quadrant pain NE electromyogram (EMG) Today R20.0 - Anesthesia of skin Lipid Panel Today E78.00 - Pure hypercholesterolemia, unspecified OT Evaluation and Treatment Today M79.641 - Pain in right hand Referrals Ophthalmology Referral H53.8 - Other visual disturbances Medications: New docusate sodium (Colace) 100 mg PO BID 60 caps 1RF 30 days K62.5 - Hemorrhage of anus and rectum Changed From hydroxyzine HCl 10 mg PO BID 15 days 30 tabs 1RF F41.1 - Generalized anxiety disorder To hydroxyzine HCl 10 mg PO BEDTIME 30 tabs 3RF 30 days F41.1 - Generalized anxiety disorder Coding Level of Care Code Est Pt Level 4 (20734) Diagnoses Bilateral hand numbness R20.0 Screening for diabetes mellitus (DM) Z13.1 Bright red blood per rectum K62.5 Right upper quadrant abdominal pain R10.11 Blurred vision, bilateral H53.8 Additional Codes SELINA-7 Assessment Billing - SELINA-7 Assessment Tool: SELINA-7 Assessment 36156 ([id number])
[2024-04-26 08:05] VITALS: BP 110/76; BMI 31.9
== END 2024-04-26 08:44 | disposition home or self-care (01) ==
PROVIDERS: PCP Physician Assistant; Visit Provider Physician Assistant
DX: R20.0 Anesthesia of skin (principal); Z13.1 Encounter for screening for diabetes mellitus; K62.5 Hemorrhage of anus and rectum; R10.11 Right upper quadrant pain; H53.8 Other visual disturbances
CPT/HCPCS: 99214

== ENCOUNTER 2024-04-27 14:27 | Outpatient (AMB) | payer OTHER, SELFPAY ==
--- NOTE | 2024-04-27 14:38 | MHC.OFFVIS ---
Vital Signs 04/27/24 14:53 Height 5 ft 7 in Weight 206 lb BMI 32.3 BP 121/65 Blood Pressure Location Lt brachial Position Sitting Pulse 82 Intake Visit Reasons: Apparent abdominal wall hernia Intake Note: Patient is seen in office for ER follow up visit, following abdominal wall hernia. Pt c/o: onset couple months, feel a lump specially when having a bm, reducible, inflammation in the opening of the stomach, nauseas, had surgery in the past in the area (ean amaya) 3 yrs ago ED: 04/16/24 Industrial Relations Director Required: Yes Industrial Relations Director Language: [employer]: Industrial Relations Director Present Industrial Relations Director Name: Korina ADAMS Information Interpreted: non-clinical & clinical Energy Efficiency Engineer: Energy Efficiency Engineer Present Accompanied by: Mother Allergies No Known Allergies Allergy (Verified 04/26/24 08:06) HPI Comments Details: 38-year-old female patient presenting for evaluation of a possible abdominal wall hernia. Previous abdominal surgeries included tubal ligation and section. She also underwent an abdominal plasty Approximally 3 years ago. She now reports an area of swelling in the left upper quadrant which increases with lifting and twisting. It also increases when having a bowel movement. The lump decreases with light pressure and while in the supine position. She denies diarrhea or constipation but does have occasional nausea. She has not previously underwent imaging of the abdomen. 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 Father No problems noted. Social History Housing: Apartment Alcohol intake: current Alcohol intake frequency: holidays/special occasions only Patient Tobacco Use Status: Current everyday Tobacco user Tobacco use type: Cigarette Cigarettes Per Day: 10 e-Cigarette/Vaping Use: Never Used Second Hand Smoke Exposure: Yes service: No Current occupational status: employed Current occupational exposures/hazards: No Cognitive needs: No Hearing needs: No Vision needs: Yes (Glasses) Review of Systems Const All systems reviewed & are unremarkable except as noted in HPI and below Denies chills, Denies fever(s), Denies headache(s), Denies poor appetite and Denies weakness ENT Denies headache(s) Card Denies chest pain, Denies irregular heart rhythm, Denies palpitations and Denies dyspnea Resp Denies cough, Denies excessive phlegm production and Denies dyspnea GI Reports as per HPI, Reports abdominal pain, Denies bloating, Denies change in bowel habits, Denies constipation, Denies heartburn, Denies diarrhea, Reports nausea and Denies vomiting Denies urinary frequency Musc Denies back pain, Denies muscle weakness and Denies numbness Skin/Breast Denies changing lesions and Denies unusual bruising Neuro Denies headache(s), Denies numbness, Denies paresthesias and Denies weakness Psych Denies anxiety and Denies depression Endo Denies palpitations Edward/Lymph Denies lymphadenopathy Physical Exam Vital Signs: Last Vital Signs Pulse 82 04/27/24 14:53 BP 121/65 04/27/24 14:53 BMI result Body Mass Index 32.3 Const General: cooperative and no acute distress Nutritional Appearance: well nourished Orientation/consciousness: patient oriented x3 Limitations: no limitations HEENT Head: Yes normocephalic and Yes atraumatic Ears: hearing grossly normal bilaterally Resp Effort & Inspection: normal respiratory effort, no audible wheezes, no cough and no respiratory distress Cardio Jugular venous distension: no JVD GI Inspection: Yes normal to inspection Abdomen image: 1. Area described by the patient as site of palpable lump. No definite hernia noted with Valsalva maneuvers. No midline hernia appreciated. Skin Other: Warm, dry, no rash Neuro General: patient oriented x3 Extrem General: Yes no clubbing, cyanosis or edema Assessment & Plan Assessment & Plan (1) Ventral hernia: Code(s): K43.9 - Ventral hernia without obstruction or gangrene Category: Medical Qualifiers: Obstruction and gangrene presence: without obstruction or gangrene Qualified Code(s): K43.9 - Ventral hernia without obstruction or gangrene Plan 38-year-old female patient presenting with complaints of pain and lump in the left upper quadrant. The symptoms seemed to increase with straining and lifting and reduced in the supine position. Symptoms are suggestive of a ventral hernia however on examination I am unable to definitely feel a hernia with Valsalva maneuvers. I recommended a CT of the abdomen as the patient previously underwent abdominal plasty and an ultrasound would not give adequate information regarding the rectus and oblique muscles. She will return following the CT to review the results and discuss treatment options. She expressed understanding and agrees with the plan. Coding Level of Care Code New Pt Level 4 (23105) Diagnoses Ventral hernia without obstruction or gangrene K43.9 Obstruction and gangrene presence: without obstruction or gangrene
[2024-04-27 14:53] VITALS: BP 121/65; PULSE 82; BMI 32.3
== END 2024-04-27 15:14 | disposition home or self-care (01) ==
PROVIDERS: PCP Physician Assistant; Visit Provider Surgery
DX: K43.9 Ventral hernia without obstruction or gangrene (principal)
CPT/HCPCS: 99204

== ENCOUNTER → 2024-04-27 14:27 | Outpatient (BNVA) | payer OTHER, SELFPAY | PROVIDERS: PCP Physician Assistant; Visit Provider Surgery | DX: K43.9 Ventral hernia without obstruction or gangrene (principal) | CPT/HCPCS: 99202 ==

== ENCOUNTER 2024-05-02 13:57 | Outpatient (REF) | payer OTHER, SELFPAY ==
[2024-05-02 14:37] LABS: Hematocrit 38.7 % (37.0-47.0); Mean Corpuscular HGB Conc 33.6 g/dl (31.0-35.0); Mean Corpuscular Hemoglobin 30.7 pg (27.0-33.0); Mean Corpuscular Volume 91.5 fL (80.0-98.0); Mean Platelet Volume 9.6 fL (9.4-12.3); Platelet Count 315 X10*3/uL (160-400); Red Blood Count 4.23 X10*6/uL (4.20-5.50); Red Cell Distribution Width 13.1 % (11.0-16.0); White Blood Count 7.6 X10*3/uL (4.8-10.8)
[2024-05-02 15:08] LABS: Alanine Aminotransferase 41 U/L (0-31); Alkaline Phosphatase 64 U/L (39-117); Anion Gap 10 (12-20); Aspartate Amino Transferase 35 U/L (5-31); Bilirubin Total 0.3 mg/dL (0.0-1.0); Blood Urea Nitrogen 9 mg/dL (9-16); Calcium 9.4 mg/dL (8.4-10.2); Carbon Dioxide 27 mmol/L (22-29); Chloride 106 mmol/L (96-108); Cholesterol 222 mg/dL (<200); Estimated Glomerular Filt Rate > 60; Glucose Fasting 94 mg/dL (60-99); HDL Cholesterol 50 mg/dL (>40); LDL Cholesterol Calculated 150 mg/dL (<100); Potassium 4.3 mmol/L (3.3-5.1); Sodium 139 mmol/L (135-145); Total Protein 6.7 g/dL (6.5-8.0); Triglycerides 114 mg/dL (<150)
== END 2024-05-02 13:58 | disposition home or self-care (01) ==
LOC: HO.LAB 13:57
PROVIDERS: PCP Physician Assistant; Visit Provider Physician Assistant
DX: Z13.1 Encounter for screening for diabetes mellitus (principal); E78.00 Pure hypercholesterolemia, unspecified
CPT/HCPCS: 36415; 80053; 80061; 85027

== ENCOUNTER 2024-05-10 07:31 | Outpatient (REF) | payer OTHER, SELFPAY ==
--- NOTE | ~2024-05-10 | US_ITS ---
EXAMINATION: US ABDOMEN COMPLETE CLINICAL INFORMATION: Right upper quadrant pain. COMPARISON: None available. TECHNIQUE: Real-time imaging of the abdominal viscera. Limited visualization due to bowel gas. FINDINGS: PANCREAS: Limited visualization of pancreatic tail and head. Imaged portion of pancreatic body is unremarkable. ABDOMINAL AORTA: The proximal, mid, and distal segments are normal in caliber. INFERIOR VENA CAVA: Visualized portions are normal. LIVER: Increased hepatic parenchymal heterogeneity and echogenicity could be associated with hepatocellular disease/hepatic steatosis and substantially limits visualization. Correlation with liver function tests and clinical exam recommended to determine further management. GALLBLADDER: Cholelithiasis. No gallbladder wall thickening. COMMON BILE DUCT: Normal in caliber measuring 0.8 cm in diameter. RIGHT KIDNEY: No hydronephrosis. No renal calculi. Limited visualization. The kidney measures 12.5 cm in maximum dimension. LEFT KIDNEY: No hydronephrosis. No renal calculi. Limited visualization. The kidney measures 12.5 cm in maximum dimension. SPLEEN: Normal. The spleen measures 9.6 cm in maximum dimension. FREE FLUID: None. US/US abdomen complete IMPRESSION: 1. Increased hepatic parenchymal heterogeneity and echogenicity could be associated with hepatocellular disease/hepatic steatosis and substantially limits visualization. Correlation with liver function tests and clinical exam recommended to determine further management. 2. Innumerable shadowing gallstones. No gallbladder wall thickening. Electronically signed by: Reyna Elizabeth MD 06/05/2024 11:42 AM EDT
== END 2024-05-10 07:32 | disposition home or self-care (01) ==
LOC: HO.US 07:31
PROVIDERS: PCP Physician Assistant; Visit Provider Physician Assistant
DX: R10.11 Right upper quadrant pain (principal)
CPT/HCPCS: 76700

== ENCOUNTER 2024-05-22 15:05 | Outpatient (REF) | payer OTHER, SELFPAY ==
--- NOTE | ~2024-05-22 | CT_ITS ---
EXAMINATION: CT ABDOMEN WITHOUT CONTRAST CLINICAL INFORMATION: Ventral hernia without obstruction or gangrene. COMPARISON: Ultrasound abdomen 05/10/2024. TECHNIQUE: Contiguous axial thin section helical images of the abdomen were performed without contrast. The data set was reformatted in the coronal and sagittal planes and reviewed on an independent workstation. This CT examination was performed using dose optimization techniques as appropriate, variously including the following: *Automated exposure control. *Adjustment of mA and/or kV according to patient size (this includes techniques or standardized protocols for targeted exams where dose is matched to indication/reason for exam; i.e. extremities or head). *Use of iterative reconstruction technique. DLP: 448 mGy-cm FINDINGS: LUNG BASES: Bibasilar scarring/atelectasis is present. The visualized lung bases are otherwise unremarkable. LIVER, GALLBLADDER, AND BILIARY TREE: The liver is normal in size, shape, and attenuation. No focal hepatic lesion or biliary ductal dilatation is present. The gallbladder contains subtle high density consistent with cholelithiasis which can be better seen on ultrasound. The gallbladder is otherwise unremarkable with no evidence of calcified gallstones, gallbladder wall thickening, or obvious pericholecystic inflammatory changes. PANCREAS: Unremarkable. SPLEEN: Unremarkable. ADRENAL GLANDS: Unremarkable. KIDNEYS AND URETERS: The kidneys are normal in size, shape, and attenuation. No hydronephrosis, hydroureter, or calculi seen. No perinephric stranding. GASTROINTESTINAL TRACT: The small and large bowel are unremarkable. The appendix is unremarkable. ABDOMINAL WALL: No significant hernia is appreciated. There is a tiny periumbilical hernia is seen containing only fat. LYMPH NODES: Normal. VASCULAR: Unremarkable. OSSEOUS STRUCTURES: Unremarkable. CT/CT abdomen wo IV con IMPRESSION: 1. No significant abdominal wall hernia is seen. 2. Incidental note made of cholelithiasis. Fleischner guidelines were followed. Electronically signed by: Rainer Sinclair MD 06/04/2024 09:05 PM EDT
== END 2024-05-22 15:06 | disposition home or self-care (01) ==
LOC: HO.CT 15:05
PROVIDERS: PCP Physician Assistant; Visit Provider Surgery
DX: K43.9 Ventral hernia without obstruction or gangrene (principal)
CPT/HCPCS: 74150

== ENCOUNTER → 2024-05-24 13:32 | Outpatient (BNV) | payer OTHER, SELFPAY | PROVIDERS: PCP Physician Assistant; Visit Provider Physical Medicine & Rehabilitation | DX: R20.2 Paresthesia of skin (principal); R20.0 Anesthesia of skin | CPT/HCPCS: 95886; 95911 ==

== ENCOUNTER 2024-05-24 13:34 | Outpatient (REF) | payer OTHER, SELFPAY ==
--- NOTE | 2024-05-24 13:32 | EMG_ITS ---
Chief complaint: Hand numbness Reason for referral: Evaluate for Carpal Tunnel Syndrome Referred by: Aldo Best Procedure done: Upper extremity NCS/EMG Precautions and/or limitations: None The limb temperature was monitored continuously and remained between 32-36 degrees C during the performance of the NCS. Nerve Conduction Studies Anti Sensory Summary Table ?Stim Site NR Onset (ms) Norm Onset (ms) Peak (ms) Norm Peak (ms) O-P Amp (?V) Norm O-P Amp Site1 Site2 Delta-0 (ms) Dist (cm) Thong (m/s) Norm Thong (m/s) Left Median Anti Sensory (2nd Digit) Wrist ? 2.6 3.4 <3.6 20.9 >10 Wrist 2nd Digit 2.6 14.0 54 Right Median Anti Sensory (2nd Digit) Wrist ? 2.5 3.4 <3.6 26.7 >10 Wrist 2nd Digit 2.5 14.0 56 Right Radial Anti Sensory (Thumb) Forearm ? 1.2 1.8 <3.1 26.3 Forearm Thumb 1.2 0.0 Left Ulnar Anti Sensory (5th Digit) Wrist ? 2.2 2.8 <3.7 41.9 >15.0 Wrist 5th Digit 2.2 14.0 64 Right Ulnar Anti Sensory (5th Digit) Wrist ? 2.0 2.7 <3.7 41.8 >15.0 Wrist 5th Digit 2.0 14.0 70 Motor Summary Table ?Stim Site NR Onset (ms) Norm Onset (ms) O-P Amp (mV) Norm O-P Amp iAmp (mV) Amp (1st) (%) Site1 Site2 Delta-0 (ms) Dist (cm) Thong (m/s) Norm Thong (m/s) Left Median Motor (Abd Poll Brev) Wrist ? 3.4 <3.9 9.1 >4.5 10.6 100.0 Elbow Wrist 4.1 23.0 56 >45 Elbow ? 7.5 8.9 10.4 97.8 Right Median Motor (Abd Poll Brev) Wrist ? 3.7 <3.9 10.7 >4.5 12.1 100.0 Elbow Wrist 3.7 20.0 54 >45 Elbow ? 7.4 8.9 10.1 83.2 Left Ulnar Motor (Abd Dig Minimi) Wrist ? 2.1 <3.0 5.0 >5 6.5 100.0 B Elbow Wrist 3.5 19.0 54 >45 B Elbow ? 5.6 4.0 5.9 85.1 A Elbow B Elbow 1.4 10.0 71 >45 A Elbow ? 7.0 3.8 5.6 80.9 Right Ulnar Motor (Abd Dig Minimi) Wrist ? 2.3 <3.0 5.4 >5 6.6 100.0 B Elbow Wrist 3.2 20.0 63 >45 B Elbow ? 5.5 6.0 7.7 111.1 A Elbow B Elbow 1.4 10.0 71 >45 A Elbow ? 6.9 6.0 7.7 111.1 EMG ?Side Muscle Nerve Root Ins Act Fibs Psw Amp Dur Poly Recrt Int Pat Comment Right 1stDorInt Ulnar C8-T1 Nml Nml Nml Nml Nml 0 Nml Complete Right FlexCarRad Median C6-7 Nml Nml Nml Nml Nml 0 Nml Complete Right Biceps Musculocut C5-6 Nml Nml Nml Nml Nml 0 Nml Complete Right Triceps Radial C6-7-8 Nml Nml Nml Nml Nml 0 Nml Complete Right Deltoid Axillary C5-6 Nml Nml Nml Nml Nml 0 Nml Complete Left 1stDorInt Ulnar C8-T1 Nml Nml Nml Nml Nml 0 Nml Complete Left FlexCarRad Median C6-7 Nml Nml Nml Nml Nml 0 Nml Complete Left Biceps Musculocut C5-6 Nml Nml Nml Nml Nml 0 Nml Complete Left Triceps Radial C6-7-8 Nml Nml Nml Nml Nml 0 Nml Complete Left Deltoid Axillary C5-6 Nml Nml Nml Nml Nml 0 Nml Complete FINDINGS: All motor and sensory nerves tested showed normal latencies, amplitudes and conduction velocities. Concentric needle EMG was performed in selected muscles of the bilateral upper extremities. Study did not reveal signs of electric abnormalities as shown in the table above. IMPRESSION: 1. This is a normal study. 2. There is no electrodiagnostic evidence for median neuropathy, ulnar neuropathy, brachial plexopathy, or cervical radiculopathy. Thank you for your kind referral. Cherrie Addison MD, CHELSI Board Certified, [place] Board [employer] and [employer] (ABPMR) Board Certified, [place] Board of Electro[employer] (ABEM) CODIN [phone] x 2 MTDD
== END 2024-05-24 13:35 | disposition home or self-care (01) ==
LOC: HO.NEURO 13:34
PROVIDERS: PCP Physician Assistant; Visit Provider Physician Assistant
DX: R20.0 Anesthesia of skin (principal)
CPT/HCPCS: 95886; 95911

== ENCOUNTER 2024-06-21 15:03 | Outpatient (AMB) | payer OTHER, SELFPAY ==
--- NOTE | 2024-06-21 15:15 | A.OFFVIS_ITS ---
Vital Signs 06/21/24 15:23 Height 5 ft 7 in Weight 213 lb BMI 33.4 BP 124/72 Blood Pressure Location Rt brachial Position Sitting Pulse 77 Intake Visit Reasons: Calculus of gallbladder, RUQ Intake Note: This patient presents for Calculus of gallbladder, RUQ. Pt c/o; reports RUQ pain radiates towards back, reports nausea and vomiting. 05/10/24: Abd US 05/22/24: Abd CT Industrial Relations Officer Required: Yes Industrial Relations Officer Language: [place] Manager Services: Industrial Relations Officer Present Industrial Relations Officer Name: Jose Luis Information Interpreted: non-clinical & clinical Accompanied by: Self / Same As Patient Allergies No Known Allergies Allergy (Verified 06/21/24 15:25) Medication List - Last Reconciled 06/21/24 by Buck Osman MD albuterol sulfate 90 mcg/actuation 2 puffs inhalation Q6H PRN 30 days buspirone 5 mg PO TID docusate sodium (Colace) 100 mg PO BID 30 days fluoxetine 10 mg PO DAILY hydroxyzine HCl 10 mg PO BEDTIME 30 days lorazepam 0.5 mg PO BID PRN nirmatrelvir-ritonavir 300 mg (150 mg x 2)-100 mg (Paxlovid) take TWO 150 mg tablets of nirmatrelvir with ONE 100 mg tablet of ritonavir twice daily for 5 days PO quetiapine 50 - 100 mg PO BEDTIME quetiapine (Seroquel) 100 mg PO BEDTIME 30 days tramadol 50 mg PO BID 5 days HPI HPI Calculus of gallbladder, RUQ: Details: 39 year old female referred for gallstones. She had seen Dr. York in the past because of a question of a ventral hernia. She describes a protuberant on the abdominal wall after her abdominoplasty 3 years ago. She was sent for a CT scan and this did not show any abdominal wall hernia. However this did reveal gallstones . She says she has had this right upper quadrant pain radiating to the back on and off for several months now. She describes occasionally getting nauseous. Aside from her abdominoplasty which was done in [facility], she has never had any abdominal surgeries in the past. 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 Father No problems noted. Social History Housing: Apartment Alcohol intake: current Alcohol intake frequency: holidays/special occasions only Patient Tobacco Use Status: Current everyday Tobacco user Tobacco use type: Cigarette Cigarettes Per Day: 10 e-Cigarette/Vaping Use: Never Used Second Hand Smoke Exposure: Yes service: No Current occupational status: employed Current occupational exposures/hazards: No Cognitive needs: No Hearing needs: No Vision needs: Yes (Glasses) Review of Systems Const Denies chills and Denies fever(s) Card Denies chest pain, Denies dyspnea and Denies dyspnea on exertion Resp Denies cough, Denies dyspnea and Denies dyspnea on exertion GI Denies hematochezia and Denies change in bowel habits Denies hematuria Musc Denies back pain and Denies limited range of motion Neuro Denies focal weakness and Denies convulsions Psych Denies depression and Denies mood swings Physical Exam Vital Signs: Last Vital Signs Pulse 77 06/21/24 15:23 BP 124/72 06/21/24 15:23 BMI result Body Mass Index 33.4 Const General: comfortable and no acute distress Orientation/consciousness: patient oriented x3 Neck Neck: Yes no lymphadenopathy Resp Auscultation: clear to auscultation bilaterally Cardio Rhythm: regular rhythm GI Palpation (GI): Soft to palpation, nontender and no guarding Neuro General: patient oriented x3 Assessment & Plan Assessment & Plan (1) Cholelithiasis: Code(s): K80.20 - Calculus of gallbladder without cholecystitis without obstruction Category: Medical Plan: She has a CAT scan done last month showing gallstones without cholecystitis. She describes periodic right upper quadrant pain radiating to the back. I therefore explained to her the option of proceeding with cholecystectomy in view of presumed symptoms secondary to her gallstones. I explained the technique of laparoscopic cholecystectomy and possible open cholecystectomy. I reviewed the risks including but not limited to bleeding, infections, injury to other organs including bowel, liver and the bile duct, bile leak, retained stones, as well as the benefits and alternatives She understands and wants to proceed. She denies any significant medical problems. Coding Level of Care Code New Pt Level 3 (84073) Diagnoses Cholelithiasis K80.20
[2024-06-21 15:23] VITALS: BP 124/72; PULSE 77; BMI 33.4
== END 2024-06-21 16:42 | disposition home or self-care (01) ==
PROVIDERS: PCP Physician Assistant; Visit Provider Surgery
DX: K80.20 Calculus of gallbladder without cholecystitis without obstruction (principal)
CPT/HCPCS: 99203

== ENCOUNTER → 2024-06-21 15:03 | Outpatient (BNVA) | payer OTHER, SELFPAY | PROVIDERS: PCP Physician Assistant; Visit Provider Surgery | DX: K80.20 Calculus of gallbladder without cholecystitis without obstruction (principal) | CPT/HCPCS: 99202 ==

== ENCOUNTER 2024-07-07 08:36 | Day surgery (SDC) | payer OTHER, SELFPAY ==
[2024-07-05 07:11] VITALS: BMI 33.4
--- NOTE | 2024-07-05 14:08 | P.CONAN_ITS ---
Documented by User: Kym Hsu NP 07/05/24 14:08 HPI - Anesthesia Eval Consult details Narrative: 39yo F for Cholecystectomy Laparoscopic,possible open PMFSH Active Problems Active Problems: All Active Problems Cholelithiasis (Acute) COVID-19 (Acute) Elevated liver enzymes (Acute) Ventral hernia (Acute) Blurred vision, bilateral (Acute) Right upper quadrant abdominal pain (Acute) Bright red blood per rectum (Acute) Screening for diabetes mellitus (DM) (Acute) Right hand pain (Acute) Left hand pain (Acute) Acute pharyngitis (Acute) Bilateral hand numbness (Acute) Bilateral hand pain (Acute) Rash (Acute) Lump of right breast (Acute) Left breast lump (Acute) Bilateral breast lump (Acute) Screening-pulmonary TB (Acute) Varicose veins of left lower extremity with inflammation (Acute) Lumbar spine pain (Acute) PVD (peripheral vascular disease) (Acute) Obese (Acute) SELINA (generalized anxiety disorder) (Acute) MDD (major depressive disorder), recurrent episode, moderate (Acute) Annual physical exam (Acute) Diarrhea (Acute) Bronchitis (Acute) Open wound (Acute) Wound dehiscence (Acute) Tobacco abuse (Acute) Obesity (BMI 30-39.9) (Acute) Obstructive sleep apnea (Acute) Hypercholesterolemia (Acute) Asthma (Acute) Anxiety and depression (Acute) Past Medical History Medical History Bronchitis 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 Father No problems noted. Surgical History Surgical History (Updated 07/07/24 @ 08:55 by Marcie Davila RN) Hx of abdominoplasty H/O tubal ligation Previous section Social History Social History Housing: Apartment Are you a primary career development engineer to a significant other at home: No Do you presently have visiting nurse or other home services: No Alcohol intake: current Alcohol intake frequency: does not drink Patient Tobacco Use Status: Current everyday Tobacco user Tobacco use type: Cigarette Cigarettes Per Day: 10 Years Smoked: 14 Smoked in Last 30 Days: Yes e-Cigarette/Vaping Use: Never Used Second Hand Smoke Exposure: Yes Use of substances other than those prescribed or required for medical reasons: Yes Substance Use Frequency: Daily Have you been hit, kicked, punched, or otherwise hurt by someone within the past year? If so, by whom?: No Are you DNR?: No Advance Directives: No Advance Directives Information Provided: Yes Recently lost weight without trying: No How much weight loss: Not applicable Eating poorly because of decreased appetite: No Nutrition screen score: 0 Nutrition Risks: No Nutritional Risk Patient : No : No Poor oral hygiene: No service: No Current occupational status: employed Current occupational exposures/hazards: No Cognitive needs: No Hearing needs: No Vision needs: Yes (Glasses) Meds Allergies Allergy/AdvReac Type Severity Reaction Status Date / Time No Known Allergies Allergy Verified 07/07/24 08:55 Home Medications ?Medication ?Instructions ?Recorded ?Confirmed ?Last Taken ?Type buspirone 5 mg tablet 5 mg PO TID anxiety 05/04/22 07/07/24 Unknown History lorazepam 0.5 mg tablet 0.5 mg PO BID PRN anxiety attack 05/04/22 07/07/24 Unknown History Exam Height,Weight and Vital Signs: Height 5 ft 7 in Weight 96.615 kg Pertinent Lab Results Pertinent Lab Results: Laboratory Tests 05/02/24 14:06 WBC 7.6 Hgb 13.0 Hct 38.7 Plt Count 315 Sodium 139 Potassium 4.3 Chloride 106 Carbon Dioxide 27 BUN 9 Creatinine 0.68 Assessment and Plan Assessment Anesthesia Assessment: Chart Reviewed Documented by User: Priya Cleaning MD 07/07/24 10:16 [facility] Past Medical History Medical History Bronchitis 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 Father No problems noted. Family history of problems with anesthesia: No Surgical History Surgical History (Updated 07/07/24 @ 08:55 by Marcie Davila RN) Hx of abdominoplasty H/O tubal ligation Previous section History of Problems with Anesthesia: No Social History Social History Housing: Apartment Are you a primary career development engineer to a significant other at home: No Do you presently have visiting nurse or other home services: No Alcohol intake: current Alcohol intake frequency: does not drink Patient Tobacco Use Status: Current everyday Tobacco user Tobacco use type: Cigarette Cigarettes Per Day: 10 Years Smoked: 14 Smoked in Last 30 Days: Yes e-Cigarette/Vaping Use: Never Used Second Hand Smoke Exposure: Yes Use of substances other than those prescribed or required for medical reasons: Yes Substance Use Frequency: Daily Have you been hit, kicked, punched, or otherwise hurt by someone within the past year? If so, by whom?: No Are you DNR?: No Advance Directives: No Advance Directives Information Provided: Yes Recently lost weight without trying: No How much weight loss: Not applicable Eating poorly because of decreased appetite: No Nutrition screen score: 0 Nutrition Risks: No Nutritional Risk Patient : No : No Poor oral hygiene: No service: No Current occupational status: employed Current occupational exposures/hazards: No Cognitive needs: No Hearing needs: No Vision needs: Yes (Glasses) Meds Allergies Allergy/AdvReac Type Severity Reaction Status Date / Time No Known Allergies Allergy Verified 07/07/24 08:55 Home Medications ?Medication ?Instructions ?Recorded ?Confirmed ?Last Taken ?Type buspirone 5 mg tablet 5 mg PO TID anxiety 05/04/22 07/07/24 Unknown History lorazepam 0.5 mg tablet 0.5 mg PO BID PRN anxiety attack 05/04/22 07/07/24 Unknown History Exam Airway Mallampati Class: II (missing, nothing loose) TM Dist: >3cm Neck ROM: Full Heart: rrr Lungs: cta Assessment and Plan Assessment Anesthesia Assessment: Anesthesia Plan Discussed Final Anesthetic Review Family History of Problems with Anesthesia: No History of Problems with Anesthesia: No NPO: Yes ASA Class: II Final Preanesthetic Review: No Changes in Pt Med Stat, Meds/Allgs Chart Reviewed and Consent Obtained/Reviewed Patient Risk: Low Procedure Risk: Low Anesthetic Plan Anesthetic Plan: GA Disposition: Standard PACU
[2024-07-07] VITALS (8 sets, daily range): BP systolic 105–132; BP diastolic 45–83; PULSE 68–89; RESP 16–24; TEMP 36.6–36.9; O2SAT 94–97; BMI 33.5
[2024-07-07] MEDS: Lactated Ringers 1,000 ML 100 ML IVCONT (09:22)
--- NOTE | 2024-07-07 10:02 | MHC.SHP ---
Pre-Procedural Eval Section A - 24 Hr Update-Section A only Date of Service: 07/07/24 The patient is an INPATIENT: No Changes since office visit: No Cold of Flu in the past 2 weeks, No New Medical Problems, No Changes in Medication and No Patient answered all questions The patient has been examined within 24 hours of the surgical procedure. The History & Physical has been completed within 30 days and I have reviewed it.: Yes Section B - Complete if H&P > 30 days Chief Complaint: Calculus of gallbladder without cholecystitis Allergies: Allergies Allergy/AdvReac Type Severity Reaction Status Date / Time No Known Allergies Allergy Verified 07/07/24 08:55 Plan I have reviewed the history and physical and performed a pertinent physical examination on my patient. No changes have occurred unless specified. Time Spent With Patient Time: Total time managing care of this patient today ____ minutes.
--- NOTE | 2024-07-07 10:02 | W.PM.OPN ---
Operative Note Operative Note Date of Service: 07/07/24 Narrative: Preop diagnosis: Symptomatic gallstones Postop diagnosis: The same Procedure: Laparoscopic cholecystectomy Surgeon: Buck Osman MD Assistants: SHAVON Gil-student Jennifer Sevilla, MS III The patient is a 39-year-old female with gallstone seen on imaging studies, we have not of periodic right upper quadrant pain. She wanted to proceed with laparoscopic cholecystectomy. She understood the technique of the planned procedure as well as the risks, benefits, and alternatives. She was brought to the operating room. She was placed supine under general anesthesia via endotracheal tube. The abdomen was prepped and draped in the usual sterile fashion. A surgical time-out was done. The patient received Cefotan 2 g IV preoperatively I made a short incision on the supraumbilical margin using blade 15. This was carried down through the full-thickness of the skin subcutaneous fat down to the fascia. The fascia was incised. The peritoneum was entered. Through this incision a Giles port was introduced. The peritoneum was introduced to a pressure of 15 mm Hg. From here on the rest of procedure was done under vision with the 10 mm 0 degree laparoscope. With laparoscopic visualization I inserted a 5/12 mm port in the epigastric area below the subcostal margin. Two 5 mm ports were introduced via small incisions below the subcostal margin along the anterior axillary line and the midclavicular line. Graspers were placed through this working ports. The patient was placed in head up and [id number] position. I was able to apply a grasper at the fundus of the gallbladder to retract this cephalad. There was note of adhesions on the anterior wall of the gallbladder so I had to carefully dissect this with the [place] dissector until I was able to completely expose the entire gallbladder. I was able to apply another grasper towards the pouch of the gallbladder and this was used to retract the gallbladder laterally. At this point, the gallbladder was retracted cephalad and lateral fashion to put the area of the cystic duct on stretch. I carefully dissected the neck of the gallbladder until was able to clearly visualize the cystic duct. I was able to also clearly see the cystic artery. I dissected both of these and confirmed the direction of both of these structures as leading into the gallbladder. There were no other structures in the area that appeared to be ductal or tubular. I was therefore able to achieve a critical view of the hepatocystic triangle. With confirmation of the neck of the gallbladder with the cystic duct achieved, I applied clips on the cystic duct with 2 clips being applied distally in the cystic duct was transected between clips with Endo scissors. I applied clips on the cystic artery as well in the same fashion and this was retracted with the clips with Endo scissors. There was note of some oozing on the the lymph node which was partially divided. I had to apply clips on this. With traction on the gallbladder away from the liver bed, I proceeded to then divide across the hilum using electrocautery spatula until I reached the interface of the gallbladder wall and the liver bed. I used a combination of blunt dissection with the tip of the spatula as well as sharp dissection with electrocautery to define a plane of dissection between the gallbladder wall and the liver bed. I the gallbladder along this well-defined plane all the way to the fundus anterior the entire gallbladder was completely . The gallbladder was retrieved through an endobag through the umbilical incision. I reinserted all ports and re-insufflated. I examined the area of dissection. This appeared to be hemostatic. I examined all 4 quadrants and there was no other pathology or any evidence of any bowel injury seen. I irrigated little bit and suctioned the irrigant fluid I then desufflated through the port sites. I removed all ports under vision with the laparoscope. The umbilical port was removed last. The fascia of the umbilical incision was closed with [id number] Polysorb 0 stitch. Skin closure was achieved on all incisions using Polysorb 4-0 subcuticular running sutures. Steri-Strips and dressings were applied All incisions were infiltrated Marcaine 0.5% for postop analgesia and the procedure was completed The patient tolerated the procedure well. There were no immediate complications. Initial and final counts of sponges and instruments were correct. Estimated blood loss was about 30 cc. The patient was extubated without difficulty and transferred to the recovery room with stable vital signs.
[2024-07-07] MEDS: fentaNYL citrate/PF 100 MCG/2 ML VIAL 50 MCG IVPUSH ×2 (12:06→12:11)
[2024-07-07] MEDS: oxyCODONE HCl Immed Release 5 MG TABLET PO (12:27)
== END 2024-07-07 13:40 | disposition home or self-care (01) ==
PROVIDERS: PCP Physician Assistant; Visit Provider Surgery
PROC: 0FT44ZZ Resection of Gallbladder, Percutaneous Endoscopic Approach (ICD-10-PCS; CPT 47562; principal; 2024-07-07 10:20)
DX: K80.10 Calculus of gallbladder with chronic cholecystitis without obstruction (principal); K82.8 Other specified diseases of gallbladder; J45.909 Unspecified asthma, uncomplicated; G47.33 Obstructive sleep apnea (adult) (pediatric); F41.8 Other specified anxiety disorders; R59.0 Localized enlarged lymph nodes; E66.9 Obesity, unspecified; Z68.33 Body mass index [BMI] 33.0-33.9, adult; Z79.899 Other long term (current) drug therapy; F17.210 Nicotine dependence, cigarettes, uncomplicated; Z98.890 Other specified postprocedural states
CPT/HCPCS: 47562; 88304; J1100; J2003; J2250; J2405; J2704; J2795; J3010

== ENCOUNTER → 2024-07-07 08:36 | Outpatient (BNV) | payer OTHER, SELFPAY | PROVIDERS: PCP Physician Assistant; Visit Provider Surgery | DX: K80.20 Calculus of gallbladder without cholecystitis without obstruction (principal) | CPT/HCPCS: 47562 ==

== ENCOUNTER 2024-07-20 10:44 | Outpatient (AMB) | payer OTHER, SELFPAY ==
--- NOTE | 2024-07-20 10:46 | A.OFFVIS_ITS ---
Vital Signs 07/20/24 10:52 Height 5 ft 7 in Weight 217 lb BMI 34.0 Intake Visit Reasons: S/P lap angela Intake Note: This patient presents for post-op assessment status post laparoscopic cholecystectomy. Pt c/o; reports she developed chronic hives and shortness of breath s/p surgery and thinks this might be an allergic reaction to anesthesia, she was prescribed x3 medications by PCP with no relieve. Ground Water Technician Required: Yes Ground Water Technician Services: Ground Water Technician Present ([place]) Information Interpreted: non-clinical & clinical Accompanied by: Self / Same As Patient Allergies No Known Allergies Allergy (Verified 07/20/24 10:54) HPI HPI S/P lap angela: Details: She underwent laparoscopic cholecystectomy for gallstones last 07/07/2024. She tolerated procedure well. She currently denies significant complaints. 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 Father No problems noted. Social History Housing: Apartment Are you a primary intensive care medicine specialist to a significant other at home: No Do you presently have visiting nurse or other home services: No Alcohol intake: current Alcohol intake frequency: does not drink Patient Tobacco Use Status: Current everyday Tobacco user Tobacco use type: Cigarette Cigarettes Per Day: 10 Years Smoked: 14 e-Cigarette/Vaping Use: Never Used Second Hand Smoke Exposure: Yes service: No Current occupational status: employed Current occupational exposures/hazards: No Cognitive needs: No Hearing needs: No Vision needs: Yes (Glasses) Review of Systems Const Denies chills and Denies fever(s) Resp Denies cough GI Denies abdominal pain Physical Exam Vital Signs: BMI result Body Mass Index 34.0 Const General: comfortable and no acute distress Eyes Other: Anicteric GI Other: All incisions well healed Palpation (GI): Soft to palpation, not firm, nontender and no guarding Assessment & Plan Assessment & Plan (1) Cholelithiasis: Code(s): K80.20 - Calculus of gallbladder without cholecystitis without obstruction Category: Medical Plan: Status post laparoscopic cholecystectomy. She is doing very well postoperatively. All incisions are well healed. I advised her to avoid lifting anything more than 20 lb for about 1-2 more weeks. She can otherwise follow up on a p.r.n. basis Her path report shows gallstones and chronic cholecystitis and I was sent her that is why as the her LVEF was 50% she was removed from anesthesia. Coding Level of Care Code Global (23834) Diagnoses Cholelithiasis K80.20
[2024-07-20 10:52] VITALS: BMI 34.0
== END 2024-07-20 11:11 | disposition home or self-care (01) ==
PROVIDERS: PCP Physician Assistant; Visit Provider Surgery
DX: K80.20 Calculus of gallbladder without cholecystitis without obstruction (principal)
CPT/HCPCS: 99024

== ENCOUNTER → 2024-07-20 10:44 | Outpatient (BNVA) | payer OTHER, SELFPAY | PROVIDERS: PCP Physician Assistant; Visit Provider Surgery | DX: Z09 Encounter for follow-up examination after completed treatment for conditions other than malignant neoplasm (principal); Z90.49 Acquired absence of other specified parts of digestive tract | CPT/HCPCS: 99212 ==

== ENCOUNTER 2024-07-24 10:05 | Emergency (ER) | payer OTHER, SELFPAY ==
[2024-07-24 10:23] VITALS: BP 123/84; PULSE 108; RESP 20; TEMP 36.2; O2SAT 95; BMI 34.2
--- NOTE | 2024-07-24 10:54 | ED_ITS ---
HPI - Allergic Reaction General Chief complaint: Allergic Reaction Stated complaint: Allergic reaction Time Seen by Provider: 07/24/24 10:23 Source: patient and old records reviewed Mode of arrival: ambulatory Limitations: no limitations History of Present Illness ED Provider: Lan Brock PA-C HPI narrative: 39-year-old Hungarian-speaking female with a history of recent cholecystectomy on July [address] Osman who presents to the ER for evaluation of 10 days of a diffuse, erythematous, pruritic rash on her body. She reports that started on her extremities and then spread to her trunk. It has been extremely itchy and bothersome. She states she did not sleep last night because of it. She did go to the urgent care and [facility] over the weekend and was prescribed ceti rizine and prednisone. She also been taking Benadryl with minimal relief. She reports the rash is on various parts of the body, comes and goes. She denies any fevers. Denies any known allergies. No new soaps, detergents, lotions. She reports this morning she woke up with shortness of breath, itchy feeling in her throat, and feeling like her throat was closing. She came to the ER for further evaluation. She denies any facial swelling or rash. No lip or tongue swelling. MD complaint: allergic reaction and hives Onset (ago): day(s) Exposure: unknown Symptoms: rash, itching and difficulty swallowing Severity: moderate Treatment prior to arrival: steroids Related Data Home Medications ?Medication ?Instructions ?Recorded ?Confirmed buspirone 5 mg tablet 5 mg PO TID anxiety 05/04/22 07/07/24 lorazepam 0.5 mg tablet 0.5 mg PO BID PRN anxiety attack 05/04/22 07/07/24 Previous Rx's ?Medication ?Instructions ?Recorded albuterol sulfate 90 mcg/actuation 2 puff inhalation Q6H PRN 02/16/24 aerosol inhaler bronchospasm 30 days #6.7 grams docusate sodium 100 mg capsule 100 mg PO BID 30 days #60 caps 04/26/24 (Colace) hydroxyzine HCl 10 mg tablet 10 mg PO BEDTIME 30 days #30 tabs 04/26/24 tramadol 50 mg tablet 50 mg PO BID pain 5 days #10 tabs 06/08/24 ibuprofen 600 mg tablet 600 mg PO Q6H PRN pain #30 tabs 07/07/24 oxycodone-acetaminophen 5 mg-325 1 tab PO Q4-6H PRN pain #25 tabs 07/07/24 mg tablet (Percocet) prednisone 20 mg tablet 20 mg PO .COMPLEX 6 days #10 tabs 07/19/24 diphenhydramine HCl 2 % topical 1 appl topical TID PRN itching 07/24/24 gel (Itch Stopping #118 mL (diphenhydramine)) hydrocortisone 2.5 % topical cream 1 appl topical BID PRN itching #30 07/24/24 grams prednisone 10 mg tablets in a dose See Taper PO DAILY #30 ea 07/24/24 pack Allergies Allergy/AdvReac Type Severity Reaction Status Date / Time No Known Allergies Allergy Verified 07/24/24 10:25 Review of Systems Review of Systems: Yes all other systems are reviewed and are negative [facility] Past Medical History Medical History Bronchitis 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 Father No problems noted. Social History Social History Housing: Apartment Are you a primary day care teacher to a significant other at home: No Do you presently have visiting nurse or other home services: No Alcohol intake: current Alcohol intake frequency: does not drink Patient Tobacco Use Status: Current everyday Tobacco user Tobacco use type: Cigarette Cigarettes Per Day: 10 Years Smoked: 14 e-Cigarette/Vaping Use: Never Used Second Hand Smoke Exposure: Yes Advance Directives: No Advance Directives Information Provided: Yes Do you have a plan to hurt others: No Plan service: No Current occupational status: employed Current occupational exposures/hazards: No Cognitive needs: No Hearing needs: No Vision needs: Yes (Glasses) Physical Exam ED Vital Signs: Vital Signs - 24 hr 07/24/24 10:23 07/24/24 12:42 Temperature 97.1 F 97.1 F Pulse Rate 108 H 108 H Respiratory Rate 20 20 Blood Pressure 123/84 123/84 Pulse Oximetry 95 95 Oxygen Delivery Method Room Air Room Air BMI result Body Mass Index 34.2 Appearance: Alert. Oriented X3. No acute distress. Head: normocephalic, atraumatic. Eyes: Pupils equal, round and reactive to light. ENT: Pharynx normal. No tonsillar swelling or exudate. Airway is patent. Uvula midline. Normal voice, handling secretions normally. No lip swelling Neck: Normal inspection. Neck supple. CVS: Normal heart rate and rhythm. Pulses normal. Respiratory: No respiratory distress. Breath sounds normal. Abdomen: Soft and nontender. +BS x4 Skin: Skin warm and dry. Normal skin color. Normal skin turgor. There are areas large erythematous, urticarial rash on the extremities and trunk, no facial involvement. Extremities: No lower extremity edema. No joint swelling. Neuro/psych: Oriented X 3. No motor deficit. No sensory deficit. CN II-XII intact. Normal speech and cognition. Medications Administered Discontinued Medications Generic Name Dose Route Start Last Admin Trade Name Freq PRN Reason Stop Dose Admin Diphenhydramine HCl 50 mg 07/24/24 10:35 07/24/24 11:01 Diphenhydramine Hcl 50 Mg/Ml Vial IVPUSH 07/24/24 10:36 50 mg ONCE ONE Administration Famotidine 20 mg 07/24/24 10:35 07/24/24 11:01 Famotidine/Pf 20 Mg/2 Ml Vial IVPUSH 07/24/24 10:36 20 mg ONCE ONE Administration Methylprednisolone Sodium Succinate 80 mg 07/24/24 10:35 07/24/24 11:01 Methylprednisolone Sod Succ 125 Mg/2 Ml Vial IVPUSH 07/24/24 10:36 80 mg ONCE ONE Administration Medical Decision Making Medical Decision Making [facility] Narrative: 39-year-old female presents to the ER for evaluation of ongoing rash for the last 10 days despite taking cetirizine, Benadryl, prednisone 20 mg. She has been on this regimen for the last couple of days with no improvement. She reports waking up this morning and feeling difficulty breathing, difficulty swallowing and like her throat was closing up. She is feeling better on arrival to the ER. She still has an urticarial type rash scattered throughout her body. Her airway is patent and lungs are clear. No facial swelling. Posterior oropharynx is normal to inspection. IV was established and she was given IV Solu-Medrol, Benadryl, Pepcid with significant improvement in her symptoms. throat symptoms resolved. will d/c home with higher dose pred w/ taper, continue benadryl and zyrtec. topical agents prescribed for itching per request. stable for d/c home. encouraged outpatient follow up with PCP. return precautions were discussed Differential Diagnosis Differential Diagnoses: The differential diagnosis associated with the presentation includes Angioedema, allergic reaction, contact dermatitis, anaphylaxis Admission/Observation Consideration of admission/observation: Escalation of care including admission/observation considered Tests considered The following testing was considered but not selected: considered basic labs, would not car changer Prescription Management I considered prescription management with: Other (Benadryl, steroids) Critical Care Time Critical Care Time Critical Care Time: No Discharge Plan Discharge Clinical Impression: Allergic reaction Patient Disposition: Home, Self-Care Instructions: General Allergic Reaction (ED) Additional Instructions: STOP the previously prescribed prednisone START the new prednisone taper at a higher dose CONTINUE the previously prescribed certirine continue oral benadryl as needed for itching use the prescribed creams as needed for itching. follow up with your doctor If you develop new or worsening symptoms call 911 or come back to the ER for further evaluation. Prescriptions: New prednisone 10 mg tablets,dose pack See Taper PO DAILY Qty: 30 0RF Taper: Prednisone 40 mg daily for 3 Days and 0 Hour 30 mg daily for 3 Days and 0 Hour 20 mg daily for 3 Days and 0 Hour 10 mg daily for 3 Days and 0 Hour Rx Instructions: 40 mg Daily x3 days, 30 mg daily x3 days, 20 mg daily x3 days, 10 mg daily x3 days hydrocortisone 2.5 % cream 1 appl topical BID PRN (Reason: itching) Qty: 30 0RF Itch Stopping(diphenhydramine) 2 % gel 1 appl topical TID PRN (Reason: itching) Qty: 118 0RF No Action albuterol sulfate 90 mcg/actuation HFA aerosol inhaler 2 puff inhalation Q6H PRN (Reason: bronchospasm) 30 Days Qty: 6.7 3RF tramadol 50 mg tablet 50 mg PO BID 5 Days Qty: 10 0RF prednisone 20 mg tablet 20 mg PO .COMPLEX 6 Days Qty: 10 0RF Rx Instructions: Take 2 tablets x3 days, 1 tablet x3 days. oxycodone-acetaminophen [Percocet] 5-325 mg tablet 1 tab PO Q4-6H PRN (Reason: pain) Qty: 25 0RF Rx Instructions: Partial Fill upon patient request. ibuprofen 600 mg tablet 600 mg PO Q6H PRN (Reason: pain) Qty: 30 0RF lorazepam 0.5 mg tablet 0.5 mg PO BID PRN (Reason: anxiety attack) buspirone 5 mg tablet 5 mg PO TID docusate sodium [Colace] 100 mg capsule 100 mg PO BID 30 Days Qty: 60 1RF hydroxyzine HCl 10 mg tablet 10 mg PO BEDTIME 30 Days Qty: 30 3RF Referrals: Aldo Best PA-C [Primary Care Provider] - Interventions: ED Discharge Assessment Last Done: 07/24/24 12:42 Discharge Date/Time: 07/24/24 12:43 Print Language: Hungarian
[2024-07-24] MEDS: diphenhydrAMINE HCL 50 MG/ML VIAL IVPUSH (11:01)
[2024-07-24] MEDS: Famotidine/PF 20 MG/2 ML VIAL IVPUSH (11:01)
[2024-07-24] MEDS: methylPREDNISolone Sod Succ 125 MG/2 ML VIAL 80 MG IVPUSH (11:01)
[2024-07-24 12:42] VITALS: BP 123/84; PULSE 108; RESP 20; TEMP 36.2; O2SAT 95
== END 2024-07-24 12:43 | disposition home or self-care (01) ==
PROVIDERS: Emergency Provider Emergency Medicine; PCP Physician Assistant
DX: T78.40XA Allergy, unspecified, initial encounter (principal); R21 Rash and other nonspecific skin eruption; X58.XXXA Exposure to other specified factors, initial encounter; E78.00 Pure hypercholesterolemia, unspecified; J45.909 Unspecified asthma, uncomplicated; F17.210 Nicotine dependence, cigarettes, uncomplicated
CPT/HCPCS: 96374; 96375; 99282; 99284; J1200; J2919

== ENCOUNTER 2025-01-04 13:24 | Outpatient (AMB) | payer OTHER, SELFPAY ==
[2025-01-04 13:33] VITALS: BP 114/78; PULSE 100; TEMP 36.3; O2SAT 99; BMI 33.1
--- NOTE | 2025-01-04 13:33 | MHC.PC.OV ---
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 Name: Use tablet ID # [id number] Accompanied by: Self / Same As Patient Allergies No Known Allergies Allergy (Verified 01/04/25 13:44) Medication List - Last Reconciled 01/04/25 by Aldo Best PA-C albuterol sulfate 90 mcg/actuation 2 puffs inhalation Q6H PRN 30 days buspirone 5 mg PO TID diphenhydramine HCl 2% (Itch Stopping (diphenhydramine)) 1 appl topical TID PRN docusate sodium (Colace) 100 mg PO BID 30 days hydrocortisone 2.5% 1 appl topical BID PRN hydroxyzine HCl 10 mg PO BEDTIME 30 days ibuprofen 600 mg PO Q6H PRN lorazepam 0.5 mg PO BID PRN tramadol 50 mg PO BID 5 days Tobacco use date assessed: 01/04/25 Dental Screening Dental Screen Date: 01/04/25 Did you have a dental visit in the last 12 months?: Yes Did you have a dental problem in the last 6 months where you did not have access to dental care?: No Was dental information given to patient?: Patient has dentist HPI Annual PE HPI Details Patient is a 39-year-old female here today for routine annual physical. Patient has a past medical history significant for obesity, elevated liver enzymes, chronic low back pain, major depressive disorder and anxiety. Vaccine: Up-to-date with tetanus vaccine and COVID vaccine. 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 Father No problems noted. Social History (Updated 01/04/25 @ 13:50 by Aldo Best PA-C) Housing: Apartment Are you a primary career professional to a significant other at home: No Do you presently have visiting nurse or other home services: No Alcohol intake: never Patient Tobacco Use Status: Current everyday Tobacco user Tobacco use type: Cigarette Cigarettes Per Day: 10 Years Smoked: 14 e-Cigarette/Vaping Use: Never Used Second Hand Smoke Exposure: Yes service: No Current occupational status: unemployed Current occupational exposures/hazards: No Cognitive needs: No Hearing needs: No Vision needs: Yes (Glasses) Questionnaire PHQ-9 Over the last 2 weeks, how often have you been bothered by any of the following problems? 1. Little interest or pleasure in doing things: nearly every day 2. Feeling down, depressed, or hopeless: nearly every day 3. Trouble falling or staying asleep, or sleeping too much: nearly every day 4. Feeling tired or having little energy: nearly every day 5. Poor appetite or overeating: nearly every day 6. Feeling bad about yourself - or that you are a failure or have let yourself or your family down: several days 7. Trouble concentrating on things, such as reading the newspaper or watching television: nearly every day 8. Moving or speaking so slowly that other people could have noticed. Or the opposite - being so fidgety or restless that you have been moving around a lot more than usual: not at all 9. Thoughts that you would be better off or of hurting yourself in some way: not at all Total score: 19 Depression Screening Interpretation: Positive Depression Screening Follow-up: Existing condition Depression Screening Done: Yes 39854 - PHQ-9 Billing: Yes Source: Developed by Drs. Sai Person, Alyssa Fan, Seng Blanchard and colleagues, with an educational herman from [employer]. Thrive Questionnaire Date Thrive assessed: 01/04/25 I am a: Patient What is your living situation today?: I have a steady place to live Within the past 12 months, did the food you bought not last and you didn't have the money to get more?: Sometimes True Within the past 12 months, did you worry whether your food would run out before you got money to buy more?: Sometimes True Do you have trouble paying for medicines?: No Do you have trouble getting transportation to medical appointments?: Yes Do you have trouble paying your heating and electricity bill?: No Do you have trouble taking care of your child, family member or friend?: No Do you have trouble with day-to-day activities such as bathing, preparing meals, shopping, managing finances, etc.?: No Are you currently unemployed and looking for a job?: Yes Are you interested in more education?: No Please select the resources that you would like help with: Transportation Currently or been in a relationship where the following occur: I choose not to answer THRIVE Score: 3 AUDIT C Alcohol Use Questionnaire (AUDIT-C) 1. How often do you have a drink containing alcohol?: Never 3. How often do you have six or more drinks on one occasion?: Never Total Score: 0 SELINA-7 AMB Questionnaire SELINA-7 Date SELINA - 7 assessed: 01/04/25 Feeling nervous, anxious, or on edge: 2 = More than half the days Not being able to stop or control worryin = More than half the days Worrying too much about different things: 2 = More than half the days Trouble relaxin = More than half the days Being so restless that it is hard to sit still: 2 = More than half the days Becoming easily annoyed or irritable: 3 = Nearly every day Feeling afraid as if something awful might happen: 3 = Nearly every day Total SELINA-7 score (0-4 normal; 5-9 mild; 10-14 moderate; 15-21 severe): 16 Source: Developed by Drs. Sai Person, Alyssa Fan, Seng Blanchard and colleagues, with an educational herman from [employer] SELINA-7 Assessment Billing SELINA-7 Assessment Tool: SELINA-7 Assessment 95715 Review of Systems Const Denies body aches, Denies chills, Denies excessive sweating, Denies fatigue, Denies fever(s) and Denies headache(s) Eyes Denies blurry vision ENT Denies dysphagia, Denies vertigo, Denies dizziness, Denies headache(s), Denies hearing loss and Denies tinnitus Card Denies chest pain, Denies chest pain with activity, Denies syncope, Denies irregular heart rhythm and Denies dyspnea Resp Denies chest congestion, Denies cough, Denies hemoptysis, Denies dyspnea and Denies wheezing GI Denies abdominal pain, Denies melena, Denies hematochezia, Denies coffee ground emesis, Denies dysphagia, Denies diarrhea, Denies nausea and Denies vomiting Denies urinary frequency, Denies dysuria, Denies urinary hesitancy and Denies urinary urgency Musc Denies arthralgias, Denies limited range of motion, Denies muscle cramps and Denies muscle weakness Skin/Breast Denies rash and Denies skin ulcer Neuro Denies Abnormal speech present, Denies confusion, Denies vertigo, Denies dizziness, Denies syncope, Denies headache(s), Denies memory loss and Denies seizure-like activity Psych Denies anxiety, Denies confusion, Denies depression, Denies memory loss, Denies panic attacks and Denies paranoia Endo Denies excessive sweating, Denies fatigue, Denies flushing, Denies polydipsia and Denies polyuria Aller/Immun Denies wheezing Physical exam (Primary Care) Vital Signs: Last Vital Signs Temp 97.3 F 01/04/25 13:33 Pulse 100 01/04/25 13:33 BP 114/78 01/04/25 13:33 Pulse Ox 99 01/04/25 13:33 Oxygen Delivery Method Room Air 01/04/25 13:33 BMI result Body Mass Index 33.1 BMI Assessment/Plan discussion: High BMI High, discussed plan: lifestyle, weight reduction, dietary and physical activity Tobacco/Smoking Status: Tobacco use Status Tobacco use date assessed 01/04/25 01/04/25 13:36 Patient Tobacco Use Status Current everyday Tobacco 01/04/25 13:50 Tobacco use type Cigarette 01/04/25 13:50 e-Cigarette/Vaping Use Never Used 01/04/25 13:50 Tobacco cessation counseling provided: Yes Relapse Prevention: discussed the importance of a supportive environment, discussed negative mood or depression after quitting, weight gain after smoking is common and discussed dietary, exercise and/or lifestyle changes Number of minutes spent counselin CPT code: 10686 - 4-10 Minutes PHQ-9: PHQ-9 Score PHQ-9: Total score 19 01/04/25 13:47 Depression Screening Interpretation: Positive Depression Screening Follow-up: Existing condition Thrive Assessment: Date of Thrive Assessment Date Thrive assessed 01/04/25 01/04/25 13:36 Currently or been in a relationship where the following occur: I choose not to answer Const Other: OBESE General: cooperative, comfortable, no acute distress, alert and awake; No confusion Orientation/consciousness: oriented to person, oriented to place, patient oriented x3 and No confusion HENMT Head: Yes normocephalic Ears: external ears normal and TM's normal bilaterally Face and sinus: No sinus tenderness Mouth: Normal oral and palatal mucosa present and tongue normal Teeth and gingiva: dentition normal and gingiva normal Throat: Yes posterior oropharynx normal, Yes tonsils normal and Yes uvula midline Eyes Conjunctivae: conjunctivae normal Sclerae: sclerae normal Pupils: Equal, round and reactive pupils present EOM: EOMs intact bilaterally Direct Ophthalmoscopy: No no photophobia Neck Neck: Yes no lymphadenopathy, No tender and Yes no JVD Thyroid: Thyroid normal Carotids: no bruits Chest Chest palpation & inspection: no tenderness Resp Effort & Inspection: normal respiratory effort, no audible wheezes, not labored and no stridor Auscultation: no crackles, no rales, no rhonchi and no wheezes Cardio Jugular venous distension: no JVD Rate: regular rate, not bradycardic and not tachycardic Rhythm: regular rhythm Bruits: no carotid bruits Peripheral pulses: Peripheral pulses 2+ throughout GI Inspection: Yes normal to inspection, No abdominal wall ecchymosis and No visible herniation Palpation (GI): Soft to palpation, nontender, no guarding, not rigid and No hepatosplenomegaly present Auscultation: normoactive bowel sounds General: Yes no CVA tenderness Back/Spine/Pelvis Back: no CVA tenderness and No back tenderness Cervical Spine: cervical ROM normal Thoracic/Lumbar Spine: thoracic and lumbar spine normal to inspection, straight leg raise negative bilaterally, No thoraco-lumbar ROM limited and No lumbar spinal tenderness Skin Lesions: no lesions Rashes: no rashes Wounds: no wounds Neuro General: oriented to person, oriented to place, patient oriented x3, CN's II-XI intact bilaterally and No confusion Cranial nerves: Yes Equal, round and reactive pupils present and Yes Normal accommodation reflex present Cognition (Neuro): normal cognition Speech: No Abnormal speech present Gait exam (Neuro): Normal gait present Motor exam (neuro): 5/5 motor strength present throughout Extrem Right upper extremity: full ROM; no cyanosis Left upper extremity: full ROM; no cyanosis Right lower extremity: no edema Left lower extremity: no edema Ankle/foot/toe images: 1. FLAT FOOT ARCH Psych Appearance: grossly normal Mental Status: mental status grossly normal Affect: normal affect Attitude: cooperative Thought process: Normal thought process present Immunizations pneumoc 20-lucero conj-dip cr(PF) 0.5 mL IM syringe Performing Provider: Aldo Best PA-C [facility] Administered by: KRISTA Chance on 01/04/25 14:28 Dose Route Admin Location Dispensed Lot Number Expiration Date [facility] R&D Lab Technician 0.5 mL IM Right Deltoid 0.5 mL [id number] 10/28/25 [employer] VIS Given Date VIS Provided VIS Publication Date 01/04/25 Single Vaccine 23 Eligibility Eligibility Date Funding Source Not [facility] Eligible 01/04/25 Private Coding Level of Care Code Est Pt Prev Care 18-39y(22304) Diagnoses Annual physical exam Z00.00 Class 1 obesity E66.811 MDD (major depressive disorder), recurrent episode, moderate F33.1 Mild intermittent asthma without complication J45.20 Asthma severity: mild Asthma persistence: intermittent Asthma complication type: uncomplicated Borderline high cholesterol E78.9 Elevated liver enzymes R74.8 Tobacco abuse Z72.0 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 Cervical cancer screening Z12.4 SELINA (generalized anxiety disorder) F41.1 Additional Codes SELINA-7 Assessment Billing - SELINA-7 Assessment Tool: SELINA-7 Assessment 55399 ([id number]) PHQ-9 - 93721 - PHQ-9 Billing: Yes ([id number]) Vital Signs *Quality* - CPT code: 46835 - 4-10 Minutes ([id number]) Assessment & Plan Assessment & Plan (1) Annual physical exam: Code(s): Z00.00 - Encounter for general adult medical examination without abnormal findings Category: Medical Plan: As per HPI (2) Class 1 obesity: Code(s): E66.811 - Obesity, class 1 Category: Medical Plan: Patient does understand her BMI is over 30 work on being more physically active and adapting to better eating habits. She reports she is getting semaglutide from a friend to which she has been using over the last month and has lost a little bit of weight. (3) MDD (major depressive disorder), recurrent episode, moderate: Code(s): F33.1 - Major depressive disorder, recurrent, moderate Category: Medical Plan: PATIENT'S PHQ-9 SCORE POSITIVE, CONTINUES WITH BUSPAR AND HYDROXYZINE AND P.R.N. USE OF LORAZEPAM WITH DECENT AFFECT (4) Asthma: Code(s): J45.909 - Unspecified asthma, uncomplicated Category: Medical Qualifiers: Asthma severity: mild Asthma persistence: intermittent Asthma complication type: uncomplicated Qualified Code(s): J45.20 - Mild intermittent asthma, uncomplicated Plan: Patient reports her asthma has been fairly well controlled, unfortunately still smoking. Has rarely had to use her albuterol inhaler. (5) Borderline high cholesterol: Code(s): E78.9 - Disorder of lipoprotein metabolism, unspecified Category: Medical Plan: Patient's most recent lipid panel showing borderline high cholesterol. She will try to make changes in her diet to reduce her cholesterol. Goal total cholesterol to be below 200 (6) Elevated liver enzymes: Code(s): R74.8 - Abnormal levels of other serum enzymes Category: Medical Plan: Patient's liver enzymes were elevated in April of 2024. Will recheck liver enzymes. She did have CT of abdomen and April of 2024 that did not show any evidence of fatty liver. She does use Tylenol p.m. on a nightly which could be contributing (7) Tobacco abuse: Code(s): Z72.0 - Tobacco use Category: Medical Plan: She does understand she needs to quit smoking. She is willing to try nicotine patches to help her quit smoking. 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 She is interested in seeing a opinion polls survey worker for evaluation and professional shoe inserts. (9) Cervical cancer screening: Code(s): Z12.4 - Encounter for screening for malignant neoplasm of cervix Category: Medical Plan: Patient is in need of cervical cancer screening (10) SELINA (generalized anxiety disorder): Code(s): F41.1 - Generalized anxiety disorder Category: Medical Plan: Patient's SELINA-7 score positive for anxiety which has been existing condition for her. She has multiple meds to use as needed for anxiety which work well. Orders: Orders Comprehensive [place]. Panel Fast Today E78.9 - Disorder of lipoprotein metabolism, unspecified Complete Blood Count no Diff Today E78.9 - Disorder of lipoprotein metabolism, unspecified Pneumococcal 20 Immunization Today Z23 - Encounter for immunization, Z72.0 - Tobacco use CT NG by PCR Today Z20.2 - Contact with and (suspected) exposure to infections with a predominantly sexual mode of transmission HIV Ab/Ag Today Z11.3 - Encounter for screening for infections with a predominantly sexual mode of transmission Lipid Panel Today E78.9 - Disorder of lipoprotein metabolism, unspecified Syphilis Screen Today Z11.3 - Encounter for screening for infections with a predominantly sexual mode of transmission Referrals NUCLEAR SECURITY OFFICER Referral Z12.4 - Encounter for screening for malignant neoplasm of cervix Podiatry Referral M21.6X2 - Other acquired deformities of left foot Medications: New nicotine 1 patch transdermal Q24H 14 days 14 ea 0RF Z72.0 - Tobacco use nicotine 1 patch transdermal DAILY 14 days 14 ea 0RF F17.200 - Nicotine dependence, unspecified, uncomplicated, Z72.0 - Tobacco use Refilled tramadol 50 mg PO BID 5 days 10 tabs 0RF pain R10.11 - Right upper quadrant pain
--- OUTSIDE RECORDS SUMMARY | 2025-01-04 16:12 | XMS_ITS | Clinical Summary ---
[facility] Address [address] [place] [address] Care Team Providers Care Landing Scaler Name Role Phone Unavailable Primary Care Provider Unavailabl e Social History Tobacco Use Types Packs/Day Years Used Date Smoking Tobacco: Never Assessed Comments Unknown Sex and Gender Information Value Date Recorded Sex Assigned at Not on file Legal Sex Female 12:18 AM EST Gender Identity Not on file Sexual Orientation Not on file Plan of Treatment Health Maintenance Due Date Last Done Comments DTaP,Tdap,and Td Vaccines (1 - Tdap) 2004 Hepatitis B Vaccines (1 of 3 - 19+ 3-dose series) 2004 Cervical Cancer Screening: P ap Smear 2006 Depression Screening 10/26/2023 HIV Screening 10/26/2023 Hepatitis C Screening 10/26/2023 Social Influencers of Health Screening 10/26/2023 COVID-19 Vaccine (2023-2 5 season) 2024 Influenza Vaccine (Season Ended) 2025 HIB Vaccines Aged Out No longer eligi ble based on patient's age to complete this topic HPV Vaccines Aged Out No longer eligi ble based on patient's age to complete this topic Hepatitis A Vaccines Aged Out No long er eligible based on patient's age to complete this topic IPV Vaccines Aged Out No longer eligi ble based on patient's age to complete this topic MMR Vaccines Aged Out No longer eligi ble based on patient's age to complete this topic Meningococcal ACWY Vaccine Aged Out N o longer eligible based on patient's age to complete this topic Meningococcal B Vaccine Aged Out No l onger eligible based on patient's age to complete this topic Pneumococcal Vaccine: Pediat rics (0 to 5 Years) and At-Risk Patients (6 to 64 Years) Aged Out No longer eligible b ased on patient's age to complete this topic RSV Immunization Patients Un vishnu 20 months Aged Out No longer eligible b ased on patient's age to complete this topic Varicella Vaccines Aged Out No longer eligible based on patient's age to complete this topic
== END 2025-01-04 14:24 | disposition home or self-care (01) ==
LOC: HO.HMCH 13:25
PROVIDERS: PCP Physician Assistant; Visit Provider Physician Assistant
DX: Z00.00 Encounter for general adult medical examination without abnormal findings (principal); E66.811 Obesity, class 1; F33.1 Major depressive disorder, recurrent, moderate; J45.20 Mild intermittent asthma, uncomplicated; E78.9 Disorder of lipoprotein metabolism, unspecified; R74.8 Abnormal levels of other serum enzymes; Z72.0 Tobacco use; M21.6X2 Other acquired deformities of left foot; Z12.4 Encounter for screening for malignant neoplasm of cervix; F41.1 Generalized anxiety disorder; Z23 Encounter for immunization; Z68.33 Body mass index [BMI] 33.0-33.9, adult

== ENCOUNTER → 2025-01-04 13:24 | Outpatient (BNVA) | payer OTHER, SELFPAY | PROVIDERS: PCP Physician Assistant; Visit Provider Physician Assistant | DX: Z00.00 Encounter for general adult medical examination without abnormal findings (principal); Z23 Encounter for immunization; E66.811 Obesity, class 1; F33.1 Major depressive disorder, recurrent, moderate; J45.20 Mild intermittent asthma, uncomplicated; E78.9 Disorder of lipoprotein metabolism, unspecified; R74.8 Abnormal levels of other serum enzymes; M21.6X2 Other acquired deformities of left foot; F41.1 Generalized anxiety disorder; Z72.0 Tobacco use | CPT/HCPCS: 90471; 90677; 96127; 99395 ==